=== PATIENT | female | born 1950 | race Caucasian/White ===

== ENCOUNTER 2016-09-08 08:26 | Outpatient (CLI) | payer MEDICARE, MEDICAID | END 2016-09-08 08:27 | disposition home or self-care (01) | DX: R73.9 Hyperglycemia, unspecified (principal); E78.5 Hyperlipidemia, unspecified; E55.9 Vitamin D deficiency, unspecified ==

== ENCOUNTER 2016-10-26 08:24 | Outpatient (CLI) | payer MEDICARE, MEDICAID | END 2016-10-26 08:25 | disposition home or self-care (01) | DX: E78.5 Hyperlipidemia, unspecified (principal); E03.9 Hypothyroidism, unspecified ==

== ENCOUNTER 2016-11-02 09:15 | Outpatient (CLI) | payer MEDICARE, MEDICAID ==
[2016-11-02] MEDS ORDERED: ALBUTEROL NEB 2.5 MG/3 ML INH ONE (09:57)
== END 2016-11-02 09:16 | disposition home or self-care (01) ==
DX: J45.998 Other asthma (principal)
CPT/HCPCS: 94060; 94729; J7613

== ENCOUNTER 2017-02-15 14:13 | Outpatient (CLI) | payer MEDICARE, MEDICAID ==
--- NOTE | 2017-02-15 16:27 | XRAY Report ---
TWO VIEW CHEST: 02/15/2017 CLINICAL INDICATION: Reactive airways disease. FINDINGS: Frontal and lateral views of the chest demonstrate a normal cardiac silhouette. The lungs are clear. No effusion or pneumothorax is present. IMPRESSION: NORMAL CHEST, UNCHANGED. JOB #: [id number] EXT JOB #:[id number]
== END 2017-02-15 14:14 | disposition home or self-care (01) ==
LOC: DI.S 14:13
PROVIDERS: ATTEND Physician Assistant Medical
DX: J45.909 Unspecified asthma, uncomplicated (principal)
CPT/HCPCS: 71020

== ENCOUNTER 2017-03-09 20:55 | Outpatient (CLI) | payer MEDICARE, MEDICAID ==
[2017-03-09 20:05] LABS: THYROID STIMULATING HORMONE 0.8 uIU/mL (0.34-5.60)
== END 2017-03-09 20:56 | disposition home or self-care (01) ==
LOC: LAB.WCP 20:55
PROVIDERS: ATTEND Physician Assistant Medical
DX: E03.9 Hypothyroidism, unspecified (principal)
CPT/HCPCS: 36415; 84439; 84443; 84481

== ENCOUNTER 2017-08-20 15:50 | Outpatient (CLI) | payer MEDICARE, MEDICAID ==
--- NOTE | 2017-08-20 21:14 | XRAY Preliminary Report ---
Exam: XR FOOT 3 VIEW RT IMPRESSION: Normal foot radiography. [facility] SITE ID: [id number]
--- NOTE | 2017-08-20 21:31 | XRAY Report ---
EXAM: RIGHT FOOT RADIOGRAPHY EXAM DATE: 08/20/2017 04:11 PM. CLINICAL HISTORY: Right foot pain. COMPARISON: None. TECHNIQUE: 3 views. FINDINGS: Bones: Normal. No fractures or bone lesions. Joints: Normal. No subluxations. Soft Tissues: Normal. No soft tissue swelling. IMPRESSION: Normal foot radiography. [facility] Referring Provider Line: [phone] SITE ID: [id number]
== END 2017-08-20 15:51 | disposition home or self-care (01) ==
LOC: DI.S 15:50
PROVIDERS: ATTEND Physician Assistant Medical
DX: M79.671 Pain in right foot (principal)

== ENCOUNTER 2017-08-25 09:06 | Outpatient (CLI) | payer MEDICARE, MEDICAID ==
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
== END 2017-08-25 09:07 | disposition home or self-care (01) ==
LOC: DI 09:06
PROVIDERS: ATTEND Physician Assistant Medical
DX: M50.31 Other cervical disc degeneration, high cervical region (principal); M47.892 Other spondylosis, cervical region; M51.36 Other intervertebral disc degeneration, lumbar region; M47.896 Other spondylosis, lumbar region; M43.16 Spondylolisthesis, lumbar region
CPT/HCPCS: 72141; 72148

== ENCOUNTER 2017-09-23 15:30 | Outpatient (CLI) | payer MEDICARE, MEDICAID | END 2017-09-23 15:31 | LOC: LAB.R 15:30 | PROVIDERS: ATTEND Physician Assistant Medical | DX: J34.89 Other specified disorders of nose and nasal sinuses (principal) | CPT/HCPCS: 87640 ==

== ENCOUNTER 2017-10-19 08:00 | Outpatient (CLI) | payer MEDICARE, MEDICAID | END 2017-10-19 08:01 | disposition home or self-care (01) | LOC: LAB.R 08:00 | PROVIDERS: ATTEND Physician Assistant Medical | DX: R21 Rash and other nonspecific skin eruption (principal) | CPT/HCPCS: 81599; 87070; 87205; 87255; 87529 ==

== ENCOUNTER 2017-10-21 07:36 | Outpatient (CLI) | payer MEDICARE, MEDICAID ==
[2017-10-21 11:53] LABS: THYROID STIMULATING HORMONE 0.25 uIU/mL (0.34-5.60)
[2017-10-21 11:58] LABS: ALBUMIN 4.2 g/dL (3.2-5.5); ALBUMIN/GLOBULIN RATIO 1.6 (1.0-2.2); ALKALINE PHOSPHATASE 64 IU/L (42-121); ALT ALANINE AMINOTRANSFERASE 23 IU/L (10-60); AST ASPARTATE AMINOTRANSFERASE 22 IU/L (10-42); BILIRUBIN,TOTAL 0.7 mg/dL (0.2-1.0); BUN - BLOOD UREA NITROGEN 11 mg/dL (6-20); CALCIUM 9.2 mg/dL (8.5-10.3); CARBON DIOXIDE - CO2 27 mmol/L (21-32); CHLORIDE 103 mmol/L (101-111); CHOL/HDL RATIO 3.8 (<4.4); CHOLESTEROL 220 mg/dL; CREATININE 0.7 mg/dL (0.4-1.0); GFR - MDRD 84 (>89); GLUCOSE 104 mg/dL (70-100); HDL CHOLESTEROL 58 mg/dL; LDL CHOLESTEROL,CALCULATED 138 mg/dL; LDL/HDL RATIO 2.4 (<4.4); SODIUM 137 mmol/L (135-145); TOTAL PROTEIN 6.9 g/dL (6.7-8.2); VLDL CHOLESTEROL 24 mg/dL
[2017-10-21 12:27] LABS: FREE T4 (FREE THYROXINE) 0.74 ng/dL (0.58-1.64)
== END 2017-10-21 07:37 | disposition home or self-care (01) ==
LOC: LAB.F 07:36
PROVIDERS: ATTEND Physician Assistant Medical
DX: E78.5 Hyperlipidemia, unspecified (principal); E03.9 Hypothyroidism, unspecified; R21 Rash and other nonspecific skin eruption
CPT/HCPCS: 36415; 80053; 80061; 83721; 84439; 84443

== ENCOUNTER 2017-11-24 12:43 | Outpatient (CLI) | payer MEDICARE, MEDICAID ==
[2017-12-02 09:14] LABS: THYROID PEROXIDASE ANTIBODIES <1
== END 2017-11-24 12:44 | disposition home or self-care (01) ==
LOC: LAB.F 12:43
PROVIDERS: ATTEND Naturopath
DX: Z00.00 Encounter for general adult medical examination without abnormal findings (principal); E78.5 Hyperlipidemia, unspecified; E55.9 Vitamin D deficiency, unspecified; R53.83 Other fatigue; E03.9 Hypothyroidism, unspecified; J34.89 Other specified disorders of nose and nasal sinuses
CPT/HCPCS: 36415; 82306; 82607; 84481; 86376; 86800

== ENCOUNTER 2017-11-25 14:46 | Outpatient (CLI) | payer MEDICARE, MEDICAID | END 2017-11-25 14:47 | disposition home or self-care (01) | LOC: LAB.F 14:46 | PROVIDERS: ATTEND Naturopath | DX: E06.3 Autoimmune thyroiditis (principal); E03.9 Hypothyroidism, unspecified ==

== ENCOUNTER 2018-01-27 10:32 | Outpatient (CLI) | payer MEDICARE, MEDICAID ==
--- NOTE | 2018-01-27 14:06 | Mammography Report ---
Procedure Date: 01/27/2018 Accession Number: [id number] / [id number] Procedure: KENAN - Diagnostic Dig Bilat CPT Code: FULL RESULT: EXAM: Diagnostic Dig Bilat DATE: 01/27/2018 11:30 AM CLINICAL HISTORY: 67 year-old nulliparous female presents with a palpable abnormality in her left breast and left axilla. TECHNIQUE: Bilateral CC, MLO, ML views. COMPARISON: 09/30/2015, 06/19/2009, 03/23/2008, 06/24/2007. FINDINGS: The breasts demonstrate diffuse fatty replacement bilaterally. No mammographic finding corresponds to the region marked as palpable. IMPRESSION: Benign findings RECOMMENDATION: Recommend routine annual Screening mammography unless otherwise clinically indicated. BIRADS CATEGORY 2: Benign findings STANDARD QUALIFYING STATEMENTS: 1. This examination was reviewed with the aid of Computer-Aided Detection (CAD). 2. A negative or benign imaging report should not delay biopsy if clinically suspicious findings are present. Consider surgical consultation if warrented. More than 5% of cancers are not identified by imaging. 3. Dense breasts may obscure an underlying neoplasm.
== END 2018-01-27 10:33 | disposition home or self-care (01) ==
LOC: DI 10:32
PROVIDERS: ATTEND Family Medicine
DX: N64.4 Mastodynia (principal); N63.20 Unspecified lump in the left breast, unspecified quadrant
CPT/HCPCS: 77066

== ENCOUNTER 2018-04-01 14:23 | Outpatient (CLI) | payer MEDICARE, MEDICAID ==
[2018-04-01 14:35] LABS: HGB - HEMOGLOBIN 14.4 g/dL (12.0-16.0); MEAN CORPUSCULAR HEMOGLOBIN 28.1 pg (27.0-31.0); MEAN CORPUSCULAR HGB CONC 34.3 g/dL (32.0-36.0); MEAN CORPUSCULAR VOLUME 82.2 fL (81.0-99.0); MEAN PLATELET VOLUME 8.5 fL (7.9-10.8); RED BLOOD COUNT 5.13 10^6/uL (4.20-5.40); RED CELL DISTRIBUTION WIDTH 13.6 % (12.0-15.0); WHITE BLOOD COUNT 8.1 x10^3/uL (4.8-10.8)
[2018-04-01 14:47] LABS: ALBUMIN 4.3 g/dL (3.2-5.5); ALBUMIN/GLOBULIN RATIO 1.6 (1.0-2.2); BILIRUBIN,TOTAL 0.7 mg/dL (0.2-1.0); CALCIUM 9.3 mg/dL (8.5-10.3); CREATININE 0.8 mg/dL (0.4-1.0)
== END 2018-04-01 14:24 | disposition home or self-care (01) ==
LOC: LAB 14:23
PROVIDERS: ATTEND Nurse Practitioner Family
DX: Z01.810 Encounter for preprocedural cardiovascular examination (principal); Z01.812 Encounter for preprocedural laboratory examination
CPT/HCPCS: 36415; 80053; 85027; 93005

== ENCOUNTER 2018-05-11 09:24 | Outpatient (CLI) | payer MEDICARE, MEDICAID ==
[2018-05-11 18:25] LABS: CHOL/HDL RATIO 4.1 (<4.4); CHOLESTEROL 286 mg/dL; HDL CHOLESTEROL 70 mg/dL; LDL CHOLESTEROL,CALCULATED 198 mg/dL; LDL/HDL RATIO 2.8 (<4.4); VLDL CHOLESTEROL 18 mg/dL
== END 2018-05-11 09:25 | disposition home or self-care (01) ==
LOC: LAB.F 09:24
PROVIDERS: ATTEND Physician Assistant Medical
DX: E78.5 Hyperlipidemia, unspecified (principal); E03.9 Hypothyroidism, unspecified
CPT/HCPCS: 36415; 80061; 83721; 84439; 84443

== ENCOUNTER 2018-05-26 14:51 | Outpatient (CLI) | payer MEDICARE, MEDICAID | END 2018-05-26 14:52 | disposition home or self-care (01) | LOC: LAB.F 14:51 | PROVIDERS: ATTEND Naturopath | DX: E03.9 Hypothyroidism, unspecified (principal); E34.9 Endocrine disorder, unspecified; R53.83 Other fatigue | CPT/HCPCS: 36415; 84443; 84481 ==

== ENCOUNTER 2018-07-07 13:38 | Outpatient (CLI) | payer MEDICARE, MEDICAID ==
--- NOTE | 2018-07-08 09:10 | DEXA Report ---
Reason: ENCTR FOR SCREENING FOR OSTEOPOROSIS, MENOPAUSAL S Procedure Date: 07/07/2018 Accession Number: [id number] / [id number] Procedure: DEX - Dexa Spine and/or Hip CPT Code: FULL RESULT: EXAM: Dexa Spine and/or Hip DATE: 07/07/2018 2:36 PM CLINICAL HISTORY: ENCTR FOR SCREENING FOR OSTEOPOROSIS, MENOPAUSAL S TECHNIQUE: Dual energy x-ray absorptiometry (DXA) was performed on a [employer] System. Regions measured are the AP Spine, femoral neck, and if needed forearm. COMPARISON: None. In accordance with the International Society for Clinical Densitometry (ISCD) guidelines, data from previous exams may be reanalyzed using current recommendations and techniques. This is done to allow a more accurate basis for comparison with the current study. FINDINGS: The data for the lumbar spine is as follows: BMD (g/cm/cm) T-SCORE Z-SCORE REGION L1 1.166 0.3 2.0 L2 1.228 0.2 1.9 L3 1.306 0.9 2.5 L4 1.303 0.9 2.5 TOTAL 1.255 0.6 2.3 NOTE: All evaluable vertebrae are used for classification The data for the hip is as follows: BMD (g/cm/cm) T-SCORE Z-SCORE REGION Neck 0.873 -1.2 0.3 TOTAL 0.891 -0.9 0.4 NOTE: The femoral neck or total proximal femur, whichever is lowest, is used for classification. IMPRESSION: THE WHO CLASSIFICATION BASED ON THE INTERNATIONAL REFERENCE STANDARD IS OSTEOPENIA. THE FRACTURE RISK IS INCREASED. RECOMMENDATION: Patients with diagnosis of osteoporosis or osteopenia should have regular bone mineral density assessment. For those eligible for Medicare, routine testing is allowed once every 2 years. Testing frequency can be increased for patients who have rapidly progressing disease or for those who are receiving medical therapy to restore bone mass. COMMENT: World Health Organization (WHO) definitions for osteoporosis and osteopenia: NORMAL BMD: T-score at -1.0 or higher, fracture risk is low OSTEOPENIA BMD: T-score between -1.0 and -2.5, fracture risk is increased. OSTEOPOROSIS BMD: T-score at -2.5 or lower, fracture risk is high. National Osteoporosis Foundation recommends: 1. Obtain adequate dietary calcium (at least 1200 mg per day) and vitamin D (400-800 international units per day). 2. Participate, as appropriate, in regular weightbearing and muscle-strengthening exercise. 3. Avoid tobacco use and reduce alcohol and caffeine intake. 4. For more detailed information see the website at www.NOF.org.
== END 2018-07-07 13:39 | disposition home or self-care (01) ==
LOC: DI 13:38
PROVIDERS: ATTEND Physician Assistant Medical
DX: Z13.820 Encounter for screening for osteoporosis (principal); M85.88 Other specified disorders of bone density and structure, other site; Z78.0 Asymptomatic menopausal state
CPT/HCPCS: 77080

== ENCOUNTER 2018-07-26 09:57 | Outpatient (CLI) | payer MEDICARE, MEDICAID ==
[2018-07-26 17:49] LABS: THYROID STIMULATING HORMONE 0.1 uIU/mL (0.34-5.60)
[2018-07-26 17:50] LABS: FREE T3 4.44 pg/mL (2.5-3.9)
[2018-07-26 17:51] LABS: FREE T4 (FREE THYROXINE) 0.69 ng/dL (0.58-1.64)
[2018-07-26 18:11] LABS: TESTOSTERONE, TOTAL < 10 ng/dL (0-50)
[2018-07-27 07:07] LABS: ESTRADIOL <15 pg/mL
== END 2018-07-26 09:58 | disposition home or self-care (01) ==
LOC: LAB.F 09:57
PROVIDERS: ATTEND Naturopath
DX: E03.9 Hypothyroidism, unspecified (principal); E34.9 Endocrine disorder, unspecified; R53.82 Chronic fatigue, unspecified; N94.3 Premenstrual tension syndrome; R68.82 Decreased libido
CPT/HCPCS: 36415; 82626; 82670; 84403; 84439; 84443; 84481

== ENCOUNTER 2018-10-20 13:21 | Outpatient (CLI) | payer MEDICARE, MEDICAID ==
[2018-10-20 18:32] LABS: THYROID STIMULATING HORMONE 0.92 uIU/mL (0.34-5.60)
[2018-10-20 18:34] LABS: FREE T4 (FREE THYROXINE) 0.63 ng/dL (0.58-1.64)
== END 2018-10-20 13:22 | disposition home or self-care (01) ==
LOC: LAB.F 13:21
PROVIDERS: ATTEND Naturopath
DX: Z00.00 Encounter for general adult medical examination without abnormal findings (principal); E03.9 Hypothyroidism, unspecified; R53.83 Other fatigue
CPT/HCPCS: 36415; 82627; 84439; 84443; 84481

== ENCOUNTER 2018-12-06 09:15 | Outpatient (CLI) | payer MEDICARE, MEDICAID ==
[2018-12-06 18:15] LABS: ALBUMIN 4.3 g/dL (3.2-5.5); ALBUMIN/GLOBULIN RATIO 1.4 (1.0-2.2); BILIRUBIN,TOTAL 0.8 mg/dL (0.2-1.0); CALCIUM 9.2 mg/dL (8.5-10.3); CREATININE 0.9 mg/dL (0.4-1.0); TOTAL PROTEIN 7.3 g/dL (6.7-8.2)
== END 2018-12-06 09:16 | disposition home or self-care (01) ==
LOC: LAB.F 09:15
PROVIDERS: ATTEND Physician Assistant Medical
DX: E03.9 Hypothyroidism, unspecified (principal)
CPT/HCPCS: 36415; 80053

== ENCOUNTER 2018-12-16 10:56 | Outpatient (CLI) | payer MEDICARE, MEDICAID ==
[2018-12-16 11:28] LABS: CHOL/HDL RATIO 5.2 (<4.4); CHOLESTEROL 334 mg/dL; HDL CHOLESTEROL 64 mg/dL; LDL CHOLESTEROL,CALCULATED 254 mg/dL; VLDL CHOLESTEROL 16 mg/dL
== END 2018-12-16 10:57 | disposition home or self-care (01) ==
LOC: LAB 10:56
PROVIDERS: ATTEND Physician Assistant Medical
DX: E78.5 Hyperlipidemia, unspecified (principal); R73.9 Hyperglycemia, unspecified
CPT/HCPCS: 80061; 83721

== ENCOUNTER 2019-01-20 09:17 | Outpatient (CLI) | payer MEDICARE, MEDICAID ==
[2019-01-20 10:06] LABS: CHOL/HDL RATIO 5.3 (<4.4); CHOLESTEROL 330 mg/dL; HDL CHOLESTEROL 62 mg/dL; LDL CHOLESTEROL,CALCULATED 235 mg/dL; LDL/HDL RATIO 3.8 (<4.4); VLDL CHOLESTEROL 33 mg/dL
== END 2019-01-20 09:18 | disposition home or self-care (01) ==
LOC: LAB 09:17
PROVIDERS: ATTEND Physician Assistant Medical
DX: E78.5 Hyperlipidemia, unspecified (principal); R73.9 Hyperglycemia, unspecified
CPT/HCPCS: 36415; 80061; 82951; 83721

== ENCOUNTER 2019-03-21 08:00 | Outpatient (CLI) | payer MEDICARE, MEDICAID ==
[2019-03-21 19:12] LABS: THYROID STIMULATING HORMONE 0.6 uIU/mL (0.34-5.60)
[2019-03-21 19:14] LABS: FREE T4 (FREE THYROXINE) 0.65 ng/dL (0.58-1.64)
== END 2019-03-21 23:59 | disposition home or self-care (01) ==
LOC: LAB.WCP 08:00
PROVIDERS: ATTEND Physician Assistant Medical
DX: E55.9 Vitamin D deficiency, unspecified (principal); R53.83 Other fatigue; E03.9 Hypothyroidism, unspecified
CPT/HCPCS: 36415; 82306; 82607; 84439; 84443; 84481

== ENCOUNTER 2019-04-12 12:49 | Outpatient (CLI) | payer MEDICARE, MEDICAID ==
[2019-04-12] MEDS ORDERED: GADOBUTROL 7.5 MMOL/7.5 ML VIAL ONE (13:27)
[2019-04-12] MEDS ORDERED: GADOBUTROL 7.5 MMOL/7.5 ML VIAL IVP ONE (13:54)
--- NOTE | 2019-04-12 14:38 | MRI Report ---
Reason: HEADACHE, NEUROLOGICAL CHANGES Procedure Date: 04/12/2019 Accession Number: [id number] / [id number] Procedure: MRI - Brain W/WO CPT Code: FULL RESULT: EXAM: MRI BRAIN WITHOUT AND WITH CONTRAST EXAM DATE: 04/12/2019 02:01 PM. CLINICAL HISTORY: Headache, neurological changes. COMPARISON: None. TECHNIQUE: Multiplanar, multisequence T1-weighted and fluid-sensitive MR sequences of the brain were performed before and after administration of intravenous contrast. Sequences optimized for routine evaluation. Other: None. IV Contrast: 7.5 mL Gadavist. FINDINGS: The diffusion-weighted images are normal. There is no evidence of acute or subacute cerebral infarction. The FLAIR images demonstrate multiple punctate T2 hyperintensities within the subcortical, deep, and periventricular white matter. This is consistent with a mild degree of chronic small vessel ischemia. Cerebral volume and ventricular size are normal. There is an 8 x 4 x 8 mm enhancing lesion of the intra-diploic space of the right parietal bone (93, 1002 and 81, 1003). It exhibits mild T2 hyperintensity. The differential diagnosis for this finding would include an intraosseous hemangioma. A metastatic lesion could produce a similar appearance but overall the former diagnosis would be somewhat favored. If the patient has had a prior noncontrast CT of the head and it becomes available, it can be used to determine stability of this finding. Otherwise, if the patient has had previous brain MRI and those images become available, they can be used to determine stability of this finding. There is normal enhancement within the deep venous sinuses. The bilateral parotid spaces exhibit normal signal intensity. The optic nerves demonstrate symmetric signal intensity and size. The imaged portions of the paranasal sinuses are normally aerated. The T2* sequence is normal. There is no evidence of subacute or chronic hemorrhage. IMPRESSION: 1. There is no evidence of acute or subacute cerebral infarction. 2. There is mild degree of chronic small vessel ischemia and mild degree of generalized volume loss. 3. There is an 8 x 4 x 8 mm nonspecific enhancing lesion of the intradiploic space of the right parietal bone. The overall appearance would somewhat favor that of an intraosseous hemangioma. Other etiologies such as an area of skeletal metastasis could potentially produce a similar appearance. If the patient has a prior CT of the head and it becomes available, it can be used to determine stability as well as further characterization of this abnormality. Otherwise, follow-up imaging with a noncontrast CT of the head can be performed for additional characterization as deemed clinically appropriate. 4. There is no enhancing mass within the brain parenchyma.
== END 2019-04-12 12:50 | disposition home or self-care (01) ==
LOC: DI 12:49
PROVIDERS: ATTEND Physician Assistant Medical
DX: R51 Headache (principal); R29.818 Other symptoms and signs involving the nervous system; G93.9 Disorder of brain, unspecified
CPT/HCPCS: 70553; A9585

== ENCOUNTER 2019-04-18 08:55 | Outpatient (CLI) | payer MEDICARE, MEDICAID ==
--- NOTE | 2019-04-18 11:09 | CT Report ---
Reason: HEADACHE, BONY LESION OVER PARIETAL AREA ON MRI Procedure Date: 04/18/2019 Accession Number: [id number] / [id number] Procedure: CT - HEAD WO CPT Code: FULL RESULT: EXAM: CT HEAD EXAM DATE: 04/18/2019 09:44 AM. CLINICAL HISTORY: Headache. Recent MRI report of abnormal signal in the right calvarium. COMPARISON: BRAIN W/WO 04/12/2019 1:17 PM. TECHNIQUE: Multiaxial CT images were obtained from the foramen magnum to the vertex. Reformats: Sagittal and coronal. IV contrast: None. In accordance with CT protocol optimization, one or more of the following dose reduction techniques were utilized for this exam: automated exposure control, adjustment of mA and/or KV based on patient size, or use of iterative reconstructive technique. FINDINGS: Corresponding to the region of abnormal signal on recent MRI, the CT shows a 9 x 4 x 8 mm subtle intramedullary hypodensity in the right parietal skull in the intramedullary space. The overlying inner and outer cortex of the skull are intact. Refer to reference images 23 of series 7 and image 20 of series 4. No CT evidence of fracture, the remainder of the calvarium appears grossly intact. Unremarkable CT appearance of the brain. No acute intracranial abnormality. IMPRESSION: Subtle intramedullary lucency in the right parietal bone is seen where signal abnormality was recently reported by MRI. These findings are nonspecific. The inner and outer tables of the skull are intact. This process appears solitary. The differential includes an atypical hemangioma of bone. Pathologic marrow signal changes are less likely but not entirely ruled out. This finding is too small to further characterize accurately with CT. Additional imaging follow-up may be considered to determine stability. [facility]
== END 2019-04-18 08:56 | disposition home or self-care (01) ==
LOC: DI 08:55
PROVIDERS: ATTEND Physician Assistant Medical
DX: R51 Headache (principal)
CPT/HCPCS: 70450

== ENCOUNTER 2019-12-26 12:12 | Outpatient (CLI) | payer MEDICARE, MEDICAID ==
[2019-12-26 13:12] LABS: BASOPHILS # (AUTO) 0.1 10^3/uL (0.0-0.1); BASOPHILS % (AUTO) 0.8 %; EOSINOPHILS # (AUTO) 0.2 10^3/uL (0.0-0.7); EOSINOPHILS % (AUTO) 2.5 %; HGB - HEMOGLOBIN 14.4 g/dL (12.0-16.0); LYMPHOCYTES # (AUTO) 2.9 10^3/uL (1.5-3.5); LYMPHOCYTES % (AUTO) 29.2 %; MEAN CORPUSCULAR HEMOGLOBIN 28.6 pg (27.0-31.0); MEAN CORPUSCULAR HGB CONC 33.8 g/dL (32.0-36.0); MEAN CORPUSCULAR VOLUME 84.5 fL (81.0-99.0); MONOCYTES # (AUTO) 0.6 10^3/uL (0.0-1.0); MONOCYTES % (AUTO) 5.7 %; NEUTROPHILS % (AUTO) 61.4 %; PLT - PLATELET COUNT 297 10^3/uL (130-450); RED BLOOD COUNT 5.04 10^6/uL (4.20-5.40); RED CELL DISTRIBUTION WIDTH 13.3 % (12.0-15.0); WHITE BLOOD COUNT 9.8 x10^3/uL (4.8-10.8)
[2019-12-26 13:29] LABS: ALBUMIN 4.3 g/dL (3.2-5.5); ALBUMIN/GLOBULIN RATIO 1.6 (1.0-2.2); ALKALINE PHOSPHATASE 76 IU/L (42-121); ALT ALANINE AMINOTRANSFERASE 26 IU/L (10-60); AST ASPARTATE AMINOTRANSFERASE 25 IU/L (10-42); BILIRUBIN,TOTAL 0.8 mg/dL (0.2-1.0); BUN - BLOOD UREA NITROGEN 18 mg/dL (6-20); CALCIUM 9.4 mg/dL (8.5-10.3); CARBON DIOXIDE - CO2 25 mmol/L (21-32); CHLORIDE 104 mmol/L (101-111); CHOL/HDL RATIO 4.9 (<4.4); CHOLESTEROL 300 mg/dL; CREATININE 0.9 mg/dL (0.4-1.0); GLUCOSE 101 mg/dL (70-100); HDL CHOLESTEROL 61 mg/dL; LDL CHOLESTEROL,CALCULATED 213 mg/dL; LDL/HDL RATIO 3.5 (<4.4); SODIUM 139 mmol/L (135-145); VLDL CHOLESTEROL 26 mg/dL
--- NOTE | 2019-12-26 15:50 | XRAY Report ---
PROCEDURE: Chest 2 View X-Ray INDICATIONS: CHEST PAIN TECHNIQUE: 2 view(s) of the chest. COMPARISON: None. FINDINGS: Surgical changes and devices: None. Lungs and pleura: No pleural effusions or pneumothorax. Lungs are clear. Mediastinum: Mediastinal contours are normal. Heart size is normal. Bones and chest wall: No suspicious bony abnormalities. Soft tissues appear unremarkable. IMPRESSION: Chest without acute cardiopulmonary abnormalities. Reviewed by: Neo Butt MD on 12/26/2019 3:49 PM PDT Approved by: Neo Butt MD on 12/26/2019 3:49 PM PDT Station ID: [id number]
== END 2019-12-26 12:13 | disposition home or self-care (01) ==
LOC: DI 12:12
PROVIDERS: ATTEND Physician Assistant Medical
DX: R07.9 Chest pain, unspecified (principal); E78.5 Hyperlipidemia, unspecified; E03.9 Hypothyroidism, unspecified
CPT/HCPCS: 36415; 71046; 80053; 80061; 83721; 84443; 85025

== ENCOUNTER 2020-01-16 16:01 | Outpatient (CLI) | payer MEDICARE, MEDICAID | END 2020-01-16 16:02 | disposition home or self-care (01) | LOC: LAB.S 16:01 | PROVIDERS: ATTEND Physician Assistant Medical | DX: R07.9 Chest pain, unspecified (principal); R53.83 Other fatigue | CPT/HCPCS: 36415; 83735 ==

== ENCOUNTER 2020-01-23 09:31 | Outpatient (CLI) | payer MEDICARE, MEDICAID ==
--- NOTE | 2020-01-23 12:17 | MRI Report ---
PROCEDURE: Lumbar Spine W/O INDICATIONS: [id number] DISC DISEASE TECHNIQUE: Noncontrast sagittal T1 spin echo and T2 fast echo, sagittal STIR, axial T1 and T2 fast spin echo thr ough the lumbar spine. In cases with scoliosis, additional coronal T2 fast spin echo may be performe d. COMPARISON: 08/25/2017 Correlation is made with the accompanying cervical spine MRI 01/23/2020. FINDINGS: Image quality: Excellent. Alignment and Curvature: There is mild S-shaped sclerotic curvature seen on the starch crab images. Minima l anterolisthesis is seen at the L3-L4 level. Grade 1 anterolisthesis is seen at L4-L5. No definite a ssociated pars defects are seen on these images. Bone Marrow: Marrow is of normal overall signal. No acute vertebral body compression fractures. Spinal Cord: Conus medullaris terminates at the L1 level. Visualized cord demonstrates normal signa l and size. Paraspinous Soft Tissues: No paravertebral masses. This patient has transitional anatomy. For the purposes of this examination, the level with the last well-developed disc space is considered to be L5-S1. This numbering scheme is chosen to remain consis tent with the numbering scheme on the prior lumbar MRI report 08/25/2017. T11-T12: Mild to moderate loss of disc height and disc signal can be seen. Mild disc bulge is seen. No significant neural foraminal or central canal narrowing can be seen. These imaging findings a re similar to the images of the prior examination. T12-L1: The disc height is well-preserved. There is loss of disc signal seen. (This level is not inc luded on the oblique axial images.) No significant disc bulge is seen. No neural foraminal or central canal narrowing can be seen. No significant change compared to the prior examination. L1-L2: Moderate loss of disc height and signal are seen. Mild to moderate disc bulge is seen. Mild to moderate facet hypertrophy is seen. There is mild to moderate right-sided and moderate left-sided neuroforaminal narrowing seen. Minimal to mild central canal narrowing is seen. These imaging findi ngs are similar to the images of the prior examination. L2-L3: Mild to moderate loss of disc height and disc signal are seen. Mild to moderate disc bulge is seen. Mild to moderate facet hypertrophy is seen. There is mild bilateral neuroforaminal narrowing seen. Mild central canal narrowing is seen. No significant change compared to the prior examinati on. L3-L4: The disc height is well-preserved. There is loss of disc signal seen. Moderate disc bulge is seen, which is eccentric to the right. At least moderate facet hypertrophy is seen. Fluid is seen wi thin the facet joints themselves. Mild bilateral neural foraminal narrowing is seen. At least mode rate central canal narrowing is seen, as on series 701 image 18. Mild progression compared to 2018. L4-L5: Mild loss of disc height and disc signal are seen. Moderate disc bulge is seen, which is ecc entric to the right. Prominent facet hypertrophy is seen. There is moderate bilateral neuroforaminal narrowing seen at this level. Moderate to severe central canal narrowing is seen, as on series 701 im age 14. These degenerative changes have progressed when compared to the prior examination. L5-S1: The disc height is well-preserved. There is loss of disc signal seen. Mild to moderate disc bulge is seen. There is mild to moderate facet hypertrophy seen. There is minimal to mild bilateral neuroforaminal narrowing seen. Minimal central canal narrowing is seen. These imaging findings are similar to the images of the prior examination. IMPRESSION: Lumbar spine degenerative changes are seen, which are most prominent at L3-L4 and L4-L5. The degenerative changes have mildly progressed compared to 2018 at the L3-L4 and the L4-L5 levels. Reviewed by: Jose Zavala MD on 01/23/2020 11:16 AM [facility] Approved by: Jose Zavala MD on 01/23/2020 11:16 AM TWAN Station ID: [id number]
--- NOTE | 2020-01-23 12:25 | MRI Report ---
PROCEDURE: Cervical Spine W/O INDICATIONS: [id number] DISC DISEASE TECHNIQUE: Noncontrast sagittal T1 spin echo and T2 fast spin echo, sagittal STIR, foraminal oblique sagittal T2 fast spin echo, and axial gradient echo or T2 fast spin echo through the cervical spine. COMPARISON: 08/25/2017. Correlation is also made with the accompanying lumbar spine MRI 01/23/2020. FINDINGS: Image quality: Motion artifact is noted. Alignment and Curvature: There is normal bony alignment. Bone Marrow: Marrow demonstrates normal overall signal. Spinal Cord: Visualized spinal cord has normal size and signal. No cerebellar tonsillar herniation. Paraspinous Soft Tissues: No paravertebral masses. Prevertebral soft tissues are normal in thicknes s. C2-C3: Moderate loss of disc height and signal are seen. Mild disc osteophyte complex is seen, with a central/right disc osteophyte protrusion, as on series 701 image 25. Mild to moderate facet hypertr ophy is seen. There is moderate left-sided and minimal right-sided neuroforaminal narrowing seen. Mod erate central canal narrowing is seen, with associated mild mass effect upon the ventral spinal cord. These imaging findings are similar to the images of the prior examination. C3-C4: Moderate loss of disc height and signal are seen. Moderate disc osteophyte complex is seen, which is eccentric to the right. There is a central disc osteophyte protrusion, as on series 701 imag e 21. There is moderate bilateral facet hypertrophy seen, right worse than left. There is moderate to severe bilateral neuroforaminal narrowing seen. At least moderate central canal narrowing is seen. Associated mass effect is seen upon the ventral spinal cord. These imaging findings are similar to t he images of the prior examination. C4-C5: Moderate loss of disc height and signal are seen. Moderate to prominent disc osteophyte compl ex is seen, which is eccentric to the right. Uncovertebral joint hypertrophy is seen at this level. Moderate facet hypertrophy is seen. Moderate to severe bilateral neuroforaminal narrowing is seen. There is moderate to severe central canal narrowing seen, with associated ventral cord flattening, a s on series 701 image 18. These degenerative changes have progressed when compared to the prior exami nation. C5-C6: Moderate loss of disc height and signal are seen. Moderate disc osteophyte complex is seen, w ith a central/right disc osteophyte protrusion. Uncovertebral joint hypertrophy is seen at this leve l. Moderate facet hypertrophy is seen, right worse than left. Moderate to severe bilateral neurofora kayleigh narrowing is seen. Moderate to severe central canal narrowing is seen, with associated ventral cord flattening, as on series 701 image 14. These degenerative changes have progressed when compared to the prior examination. C6-C7: Moderate loss of disc height and signal are seen. At least moderate disc osteophyte complex i s seen. There is a central disc osteophyte protrusion seen. Uncovertebral joint hypertrophy is seen at this level. Mild to moderate facet hypertrophy is seen. There is moderate to severe bilateral tamera roforaminal narrowing seen. At least moderate central canal narrowing is seen. Associated mass effec t is seen upon the ventral spinal cord. These imaging findings are similar to the images of the prio r examination. C7-T1: The disc height is well-preserved. There is loss of disc signal seen. Mild disc osteophyte c omplex is seen. Mild facet hypertrophy is seen. Moderate bilateral neural foraminal narrowing is seen. Mild central canal narrowing is seen. These imaging findings are similar to the images of t he prior examination. IMPRESSION: Multiple levels of cervical spine degenerative change are seen, which are most prominent inferiorly. The degenerative changes have progressed at C4-C5, C5-C6, and C6-C7 compared to 2018. Reviewed by: Jose Zavala MD on 01/23/2020 11:24 AM TWAN Approved by: Jose Zavala MD on 01/23/2020 11:24 AM TWAN Station ID: [id number]
== END 2020-01-23 09:32 | disposition home or self-care (01) ==
LOC: DI 09:31
PROVIDERS: ATTEND Physician Assistant Medical
DX: M50.30 Other cervical disc degeneration, unspecified cervical region (principal); M43.16 Spondylolisthesis, lumbar region; M51.34 Other intervertebral disc degeneration, thoracic region; M48.061 Spinal stenosis, lumbar region without neurogenic claudication; M47.816 Spondylosis without myelopathy or radiculopathy, lumbar region; M47.817 Spondylosis without myelopathy or radiculopathy, lumbosacral region; M25.78 Osteophyte, vertebrae; M50.31 Other cervical disc degeneration, high cervical region; M48.02 Spinal stenosis, cervical region; M47.812 Spondylosis without myelopathy or radiculopathy, cervical region; M47.813 Spondylosis without myelopathy or radiculopathy, cervicothoracic region; M48.03 Spinal stenosis, cervicothoracic region
CPT/HCPCS: 72141; 72148

== ENCOUNTER 2020-02-28 09:07 | Outpatient (CLI) | payer MEDICARE, MEDICAID ==
--- NOTE | 2020-02-28 15:39 | Nuclear Medicine Report ---
PROCEDURE: Rest and exercise myocardial perfusion SPECT with gated imaging and ejection fraction INDICATIONS: CHEST PAIN RADIOPHARMACEUTICAL: 8.5 mCi Tc-99m Myoview IV at rest and 22.7 mCi Tc-99m Myoview IV at peak exerci se. [id number] was performed. TECHNIQUE: Radiopharmaceutical was injected at peak stress test, and also at rest. SPECT images wer e obtained. SPECT myocardial perfusion images were displayed in short axis, horizontal long axis, an d vertical long axis views. Gated images were reviewed using AutoQUANT software. COMPARISON: None available. FINDINGS: Raw data: There is good myocardial labeling by radiotracer. No significant motion artifacts. Lung- to-heart ratio is 0.36 (normal is less than 0.38 for tetrafosmin tracer). Left ventricle function: Gated images demonstrate normal left ventricle wall thickening. No segment al wall motion abnormality. No transient ischemic dilation; TID is 1.23 (normal less than 1.3). The left ventricle resting end-diastolic volume is normal. Left ventricle stress ejection fraction is g reater than 70%; normal values are above 45%. Myocardial perfusion: There is a fixed defect in the anterior septum, most likely caused by breast a ttenuation artifact. There is otherwise normal distribution of activity in the left and right ventric ular myocardium. No reversible perfusion defects. IMPRESSION: 1. Normal myocardial perfusion images. Decreased activity in the anterior septum is most likely cause d by breast attenuation artifact. No reversible perfusion defect to suggest myocardial ischemia. 2. Normal left ventricular volume and systolic function. PQRS ATTESTATIONS: Measure 322 - Is this imaging test primarily performed on a low-risk surgery patient for preoperative evaluation within 30 days preceding their low-risk non-cardiac surgery? Low-risk surgery is defined as cardiac or myocardial infarction less than 1%, including (but not limited to) endoscopic pr ocedures, superficial procedures, cataract surgery, and excisional breast surgery: Answer: No Measure 323 - Is this imaging test performed primarily for the monitoring of an asymptomatic patient who had percutaneous coronary intervention on the visit date or within 2 years of the visit date? An swer: No Measure 324 - Is this imaging test performed primarily for the initial detection and risk assessment on an asymptomatic, low coronary heart disease patient? Low CHD risk definition = clinicians should consider the maximum number of available patient factors used to estimate risk based on [place] (A TP III criteria), typically age, gender, diabetes, smoking status, and use of blood pressure medicati on, and integrate age appropriate estimates for missing elements, such as LDL or standard blood press ure. Answer: No Reviewed by: Sarah Thomas MD on 02/28/2020 2:38 PM AKSTEPHANIE Approved by: Sarah Thomas MD on 02/28/2020 2:38 PM AKDT Station ID: [id number]
--- NOTE | 2020-02-28 17:28 | CARDIAC PROCEDURE NOTE ---
DATE OF SERVICE: 02/28/2020 Physician: Colleen Saleh MD, [facility] INDICATION: Chest pain. PROCEDURE: After signing informed consent, the patient underwent a Rock- protocol treadmill stress test with nuclear myocardial perfusion imaging. RESTING HEART RATE: 62. PEAK HEART RATE: 142 (92% predicted maximum heart rate for age). RESTING BLOOD PRESSURE: 138/83. PEAK BLOOD PRESSURE: 237/76. The patient exercised for 3 minutes and 26 seconds on an extended stage-1 Rock- protocol treadmill stress test. She achieved a peak heart rate of 142 (92% PMHR) and 4.6 METS. The patient developed shortness of breath quickly. She was moderately to severely short of breath at peak, and rated her perceived exertion at 16/20 at peak on the Rahul scale. She had no chest pain. Oxygen saturation was 98-100% on room air throughout the entire test. RESTING EKG: Normal sinus rhythm, right axis deviation, RSR' in V1, possible left atrial enlargement. EKG AT 1 MINUTE: New T-wave inversions are present in leads II, III, aVF, and V3 through V6. EKG AT PEAK: Frequent PVCs, a run of ventricular trigeminy seen, rare PACs, ore rightward axis, flattened T-waves in leads II, III, aVF, and V2 through V5. SUMMARY 1. Abnormal resting EKG, suggestive of cor pulmonale. 2. Ischemic T-wave changes are visualized at 1 minute. 3. Abnormal EKG at peak suggesting inferior, as well as anterior ischemia. 4. Premature ventricular contractions increase at peak heart rate despite no desaturation, suggesting ischemia. 5. Nuclear images reported separately. 6. This patient's cardiac risk based on all the above: High. cc: Nallely Styles PA-C TD: 02/28/2020 17:17 FRANK
== END 2020-02-28 09:08 | disposition home or self-care (01) ==
LOC: DI 09:07
PROVIDERS: ATTEND Physician Assistant Medical
DX: R94.31 Abnormal electrocardiogram [ECG] [EKG] (principal); I49.3 Ventricular premature depolarization
CPT/HCPCS: 78452; 93016; 93017; 93018; A9500

== ENCOUNTER 2020-03-09 07:54 | Outpatient (CLI) | payer MEDICARE, MEDICAID | END 2020-03-09 23:59 | disposition home or self-care (01) | LOC: LAB.R 07:54 | PROVIDERS: ATTEND Physician Assistant Medical | DX: R05 Cough (principal) | CPT/HCPCS: 87070; 87205 ==

== ENCOUNTER 2020-05-01 12:24 | Outpatient (CLI) | payer MEDICARE, MEDICAID ==
--- NOTE | 2020-05-02 15:20 | Mammography Report ---
BILATERAL DIGITAL SCREENING MAMMOGRAM 3D/2D: 05/01/2020 CLINICAL: Routine screening. Comparison is made to exams dated: 01/27/2018 mammogram and 09/30/2015 mammogram - [facility]. There are scattered fibroglandular elements in both breasts. There is a benign area of fat necrosis in the left breast. There also are benign post operative find ings in both breasts. No significant masses, calcifications, or other findings are seen in either breast. There has been no significant interval change. IMPRESSION: BENIGN There is no mammographic evidence of malignancy. A 1 year screening mammogram is recommended. This exam was interpreted at Station ID: [id number]. NOTE: For mammograms, a report in lay terms will be sent to the patient. Approximately 15% of breast malignancies will not be visualized mammographically. In the management of a palpable breast mass, a negative mammogram must not discourage biopsy of a clinically suspicious lesion. Electronically Signed By: John Roger M.D. [email or web address]:05/01/2020 14:50:07 ACR BI-RADS Category 2: Benign Finding(s) 3342F PARENCHYMAL PATTERN: (A) - The breast(s) demonstrate(s) scattered fibroglandular densities. BI-RADS CATEGORY: (2) - 2 RECOMMENDATION: (ANNUAL) - Recommend routine annual screening mammography. [id number] 1 year screening LATERALITY: (B)
== END 2020-05-01 12:25 | disposition home or self-care (01) ==
LOC: DI.N 12:24
DX: Z12.31 Encounter for screening mammogram for malignant neoplasm of breast (principal)
CPT/HCPCS: 77063; 77067

== ENCOUNTER 2020-09-13 08:00 | Outpatient (CLI) | payer MEDICARE, MEDICAID ==
[2020-09-13 19:53] LABS: BASOPHILS # (AUTO) 0.1 10^3/uL (0.0-0.1); BASOPHILS % (AUTO) 0.8 %; EOSINOPHILS # (AUTO) 0.2 10^3/uL (0.0-0.7); EOSINOPHILS % (AUTO) 2.9 %; HCT - HEMATOCRIT 43.8 % (37.0-47.0); HGB - HEMOGLOBIN 14.3 g/dL (12.0-16.0); LYMPHOCYTES # (AUTO) 2.9 10^3/uL (1.5-3.5); LYMPHOCYTES % (AUTO) 40.4 %; MEAN CORPUSCULAR HEMOGLOBIN 28.3 pg (27.0-31.0); MEAN CORPUSCULAR HGB CONC 32.6 g/dL (32.0-36.0); MEAN CORPUSCULAR VOLUME 86.7 fL (81.0-99.0); MEAN PLATELET VOLUME 11.4 fL (7.9-10.8); MONOCYTES # (AUTO) 0.5 10^3/uL (0.0-1.0); MONOCYTES % (AUTO) 6.4 %; NEUTROPHILS # (AUTO) 3.6 10^3/uL (1.5-6.6); NEUTROPHILS % (AUTO) 49.4 %; PLT - PLATELET COUNT 309 10^3/uL (130-450); RED BLOOD COUNT 5.05 10^6/uL (4.20-5.40); RED CELL DISTRIBUTION WIDTH 13.1 % (12.0-15.0); WHITE BLOOD COUNT 7.2 x10^3/uL (4.8-10.8)
[2020-09-13 20:28] LABS: T4 (THYROXINE) 7.09 ug/dL (6.09-12.23)
[2020-09-13 20:31] LABS: THYROID STIMULATING HORMONE 1.02 uIU/mL (0.34-5.60)
[2020-09-13 20:34] LABS: ALBUMIN 4.1 g/dL (3.2-5.5); ALBUMIN/GLOBULIN RATIO 1.3 (1.0-2.2); BILIRUBIN,TOTAL 0.5 mg/dL (0.2-1.0); CALCIUM 9.7 mg/dL (8.5-10.3); CREATININE 0.9 mg/dL (0.4-1.0); POTASSIUM 3.9 mmol/L (3.5-5.0); TOTAL PROTEIN 7.2 g/dL (6.7-8.2)
[2020-09-13 20:38] LABS: TOTAL T3 1.35 ng/mL (0.87-1.78)
== END 2020-09-13 23:59 | disposition home or self-care (01) ==
LOC: LAB.S 08:00
PROVIDERS: ATTEND Physician Assistant Medical
DX: E03.9 Hypothyroidism, unspecified (principal); R53.83 Other fatigue; R00.2 Palpitations
CPT/HCPCS: 36415; 80053; 84436; 84443; 84480; 85025

== ENCOUNTER 2020-09-16 09:56 | Outpatient (CLI) | payer MEDICARE, MEDICAID ==
[2020-09-16 14:48] LABS: ALBUMIN 4.3 g/dL (3.2-5.5); ALBUMIN/GLOBULIN RATIO 1.4 (1.0-2.2); ALKALINE PHOSPHATASE 77 IU/L (42-121); ALT ALANINE AMINOTRANSFERASE 24 IU/L (10-60); AST ASPARTATE AMINOTRANSFERASE 21 IU/L (10-42); BILIRUBIN,TOTAL 0.8 mg/dL (0.2-1.0); BUN - BLOOD UREA NITROGEN 20 mg/dL (6-20); CALCIUM 9.4 mg/dL (8.5-10.3); CARBON DIOXIDE - CO2 27 mmol/L (21-32); CHLORIDE 102 mmol/L (101-111); CHOL/HDL RATIO 4.8 (<4.4); CHOLESTEROL 300 mg/dL; CREATININE 0.8 mg/dL (0.4-1.0); GFR - MDRD 71 (>89); GLUCOSE 109 mg/dL (70-100); HDL CHOLESTEROL 62 mg/dL; LDL CHOLESTEROL,CALCULATED 197 mg/dL; LDL/HDL RATIO 3.2 (<4.4); SODIUM 136 mmol/L (135-145); TOTAL PROTEIN 7.4 g/dL (6.7-8.2); TRIGLYCERIDES 205 mg/dL; VLDL CHOLESTEROL 41 mg/dL
== END 2020-09-16 09:57 | disposition home or self-care (01) ==
LOC: LAB.S 09:56
PROVIDERS: ATTEND Physician Assistant Medical
DX: E78.5 Hyperlipidemia, unspecified (principal)
CPT/HCPCS: 36415; 80053; 80061; 83721

== ENCOUNTER 2020-10-29 10:57 | Outpatient (CLI) | payer MEDICARE, MEDICAID ==
[2020-10-29 15:23] LABS: ALBUMIN 4.4 g/dL (3.2-5.5); ALBUMIN/GLOBULIN RATIO 1.6 (1.0-2.2); ALKALINE PHOSPHATASE 70 IU/L (42-121); ALT ALANINE AMINOTRANSFERASE 20 IU/L (10-60); AST ASPARTATE AMINOTRANSFERASE 20 IU/L (10-42); BILIRUBIN,TOTAL 0.9 mg/dL (0.2-1.0); BUN - BLOOD UREA NITROGEN 21 mg/dL (6-20); CALCIUM 9.3 mg/dL (8.5-10.3); CARBON DIOXIDE - CO2 26 mmol/L (21-32); CHLORIDE 105 mmol/L (101-111); CHOL/HDL RATIO 4.8 (<4.4); CHOLESTEROL 309 mg/dL; CREATININE 0.9 mg/dL (0.4-1.0); GFR - MDRD 62 (>89); GLUCOSE 107 mg/dL (70-100); HDL CHOLESTEROL 64 mg/dL; LDL CHOLESTEROL,CALCULATED 216 mg/dL; LDL/HDL RATIO 3.4 (<4.4); POTASSIUM 4.1 mmol/L (3.5-5.0); SODIUM 140 mmol/L (135-145); TOTAL PROTEIN 7.1 g/dL (6.7-8.2); TRIGLYCERIDES 147 mg/dL; VLDL CHOLESTEROL 29 mg/dL
[2020-10-29 15:29] LABS: T4 (THYROXINE) 12.18 ug/dL (6.09-12.23)
[2020-10-29 15:33] LABS: THYROID STIMULATING HORMONE < 0.08 uIU/mL (0.34-5.60)
== END 2020-10-29 10:58 | disposition home or self-care (01) ==
LOC: LAB.S 10:57
PROVIDERS: ATTEND Registered Nurse
DX: E78.5 Hyperlipidemia, unspecified (principal); E03.9 Hypothyroidism, unspecified
CPT/HCPCS: 36415; 80053; 80061; 83721; 84436; 84443; 84480

== ENCOUNTER 2021-01-30 12:30 | Outpatient (CLI) | payer MEDICARE, MEDICAID ==
[2021-01-30 15:17] LABS: T4 (THYROXINE) 10.39 ug/dL (6.09-12.23)
[2021-01-30 15:21] LABS: THYROID STIMULATING HORMONE 0.08 uIU/mL (0.34-5.60)
[2021-01-30 15:57] LABS: FREE T4 (FREE THYROXINE) 1.45 ng/dL (0.58-1.64)
== END 2021-01-30 12:31 | disposition home or self-care (01) ==
LOC: LAB.S 12:30
PROVIDERS: ATTEND Registered Nurse
DX: E03.9 Hypothyroidism, unspecified (principal)
CPT/HCPCS: 36415; 84436; 84439; 84443; 84480

== ENCOUNTER 2021-04-21 07:04 | Outpatient (CLI) | payer MEDICARE, MEDICAID ==
[2021-04-21 15:39] LABS: CHOLESTEROL 297 mg/dL; HDL CHOLESTEROL 59 mg/dL; LDL CHOLESTEROL,CALCULATED 208 mg/dL; LDL/HDL RATIO 3.5 (<4.4); TRIGLYCERIDES 150 mg/dL; VLDL CHOLESTEROL 30 mg/dL
== END 2021-04-21 07:05 | disposition home or self-care (01) ==
LOC: LAB.S 07:04
PROVIDERS: ATTEND Registered Nurse
DX: E78.5 Hyperlipidemia, unspecified (principal)
CPT/HCPCS: 36415; 80061; 83721

== ENCOUNTER 2021-09-16 08:17 | Outpatient (CLI) | payer MEDICARE, MEDICAID ==
[2021-09-16 14:29] LABS: BASOPHILS # (AUTO) 0.1 10^3/uL (0.0-0.1); BASOPHILS % (AUTO) 0.7 %; EOSINOPHILS # (AUTO) 0.2 10^3/uL (0.0-0.7); EOSINOPHILS % (AUTO) 2.6 %; HCT - HEMATOCRIT 44.4 % (37.0-47.0); HGB - HEMOGLOBIN 14.5 g/dL (12.0-16.0); LYMPHOCYTES # (AUTO) 2.3 10^3/uL (1.5-3.5); LYMPHOCYTES % (AUTO) 33.7 %; MEAN CORPUSCULAR HEMOGLOBIN 27.9 pg (27.0-31.0); MEAN CORPUSCULAR HGB CONC 32.7 g/dL (32.0-36.0); MEAN CORPUSCULAR VOLUME 85.5 fL (81.0-99.0); MEAN PLATELET VOLUME 10.9 fL (7.9-10.8); MONOCYTES # (AUTO) 0.5 10^3/uL (0.0-1.0); MONOCYTES % (AUTO) 7.7 %; NEUTROPHILS # (AUTO) 3.8 10^3/uL (1.5-6.6); NEUTROPHILS % (AUTO) 55.2 %; PLT - PLATELET COUNT 315 10^3/uL (130-450); RED BLOOD COUNT 5.19 10^6/uL (4.20-5.40); RED CELL DISTRIBUTION WIDTH 13.2 % (12.0-15.0); WHITE BLOOD COUNT 6.9 x10^3/uL (4.8-10.8)
[2021-09-16 14:46] LABS: THYROID STIMULATING HORMONE 0.14 uIU/mL (0.34-5.60)
[2021-09-16 14:52] LABS: ALBUMIN 4.1 g/dL (3.2-5.5); ALBUMIN/GLOBULIN RATIO 1.4 (1.0-2.2); ALKALINE PHOSPHATASE 73 IU/L (42-121); ALT ALANINE AMINOTRANSFERASE 24 IU/L (10-60); AST ASPARTATE AMINOTRANSFERASE 23 IU/L (10-42); BILIRUBIN,TOTAL 0.8 mg/dL (0.2-1.0); BUN - BLOOD UREA NITROGEN 17 mg/dL (6-20); CALCIUM 9.2 mg/dL (8.5-10.3); CARBON DIOXIDE - CO2 25 mmol/L (21-32); CHLORIDE 103 mmol/L (101-111); CHOL/HDL RATIO 4.5 (<4.4); CHOLESTEROL 288 mg/dL; CREATININE 1.1 mg/dL (0.4-1.0); GFR - MDRD 49 (>89); GLUCOSE 109 mg/dL (70-100); HDL CHOLESTEROL 64 mg/dL; LDL CHOLESTEROL,CALCULATED 205 mg/dL; LDL/HDL RATIO 3.2 (<4.4); SODIUM 138 mmol/L (135-145); TOTAL PROTEIN 7.1 g/dL (6.7-8.2); TRIGLYCERIDES 96 mg/dL; VLDL CHOLESTEROL 19 mg/dL
[2021-09-16 15:20] LABS: FREE T4 (FREE THYROXINE) 1.3 ng/dL (0.58-1.64)
== END 2021-09-16 08:18 | disposition home or self-care (01) ==
LOC: LAB.S 08:17
PROVIDERS: ATTEND Registered Nurse
DX: E78.5 Hyperlipidemia, unspecified (principal); R73.9 Hyperglycemia, unspecified; E03.9 Hypothyroidism, unspecified; F32.A Depression, unspecified
CPT/HCPCS: 36415; 80053; 80061; 83721; 84439; 84443; 85025

== ENCOUNTER 2021-10-08 11:45 | Outpatient (CLI) | payer MEDICARE, MEDICAID ==
--- NOTE | 2021-10-08 12:30 | SLEEP CARE CONSULTATION ---
Information from patient questionnaire entered by Mani Latham MA. I have reviewed and concur with the information entered by Mani Latham MA. This document represents the service I personally performed and the decisions made by me, Ciara Snyder ARNP. History of Present Illness Service Date and Time: 10/08/2021 1145 Reason for Visit: New patient (ONSET 09/2016, NO PRIORS, ) Chief Complaint: reports: Unrefreshed sleep, Excessive daytime sleepiness, Fati abraham, Other (wake at night; trouble going back to sleep) Date of Onset: couple of years Usual bedtime: 9-11 PM, sometimes midnight Time it takes to fall asleep: 30 minutes to 1 hr Snores at night: No (don't know, sleeps alone) Observed to quit breathing while asleep: No Number of times waking at night: 1 Reasons for waking at night: reports: Pain, Bathroom, Other (sounds in apartment; has asthma, will wake up short of breath). denies: Choking, Snoring, Gasping for air Toss, Turn, or Twitch while sleeping: Yes Recalls having dreams: Yes Usually gets out of bed at: 0730 for meds Feels refreshed in the morning: No Morning headache: Yes (daily; last until take ibuprofen) Sleepy or fatigued during the day: Yes (once in a while; yobani in winter) Ever fallen asleep while driving: No Takes day naps: Yes (once in a while) Dreams during day naps: No Prior sleep studies: No Additional HPI information: I had the pleasure of seeing PAULETTE MUHAMMAD today regarding the possibility of her having a sleep disorder. Her current complaints are fatigue and trouble going back to sleep. She states does not feel rested in the mornings. She has slept alone since and does not know if she snores or has any pauses in breathing. - Parasomnia Symptoms Ever been unable to move upon waking from sleep: Yes Walks in sleep: No Talks in sleep: Yes (probably) Ever acted out dreams in sleep: No Ever felt weak in the knees when startled or emotional: No Bothered by creepy, crawly, restless sensations in legs: Yes (sciatica and low magnesium) Problems with memory or concentration: Yes (both, brain fog really bad) Subjective Initial [place] Sleepiness Scale score: 1 (2021) Past Medical History Past Medical History: reports: Claustrophobia, Arthritis, Hypothyroidism, Fibromyalgia, Anxiety, Asthma, Depression, Other (MCS, chronic fatigue, hypoglycemia; cervical and neck degeneration-started PT) Social History The patient's occupation is a RE. Patient is Single and lives in . Have you smoked in the past 12 months: No Cigarettes per day (20/pack): 30 Years of smokin Quit date: 1989 Smoking Pack Years: 15.0 Alcohol use: No Caffeine use: Yes Caffeine amount and frequency: 0-4 per week Family History Family history of sleep disordered breathing: No (unknown) Allergies and Home Medications Drug allergies reviewed: Yes (Vicodon, Valium) Home medication list reviewed: Yes Allergy and home medication list: Medications: Levothyroxine Triamcinolone cream 0.1% Ibuprofen MSM Saccharomyces Boulardii Madan Stress Red Rice Yeast w/ CoQ10 Zinc Vitamin D-3 Calm (Magnesium/Calcium) Effer C with B complex Sambucus Elderberry NAC Xopenex HFA Review of Systems Weight gain over past 5 years: 10 pounds Cardiovascular: reports: irregular heart rate or pulse (at times) Respiratory: reports: shortness of breath, wheeze Urinary: reports: frequency (when caffiene or wait too long; doing Kegels), urgency Neurological: reports: headaches, head trauma, other (Pressure left side of head and left ear when out of alignment) Psychiatric: reports: Attention Deficit Hyperactivity (not checked yet), anxiety, depression Ear/Nose/Throat: reports: injury to nose (bridge), tonsillectomy, wisdom teeth removed, other (tinnitus) Endocrine: reports: thyroid disease, sluggishness, too hot or cold (at times), increased appetite, increased urination (when I drink caffeine), unexplained weakness (muscle), other (dehydrated) Immunologic: reports: sneezing, itching, allergies to food or environment (mold; soy; dairy (lactose), whey, gluten), other (MCS, perfume, fragrances, diesel fuel smell) Physical Exam Vital signs obtained and entered by: Garrison LATHAM CMA AAANDIE Blood Pressure: 138/76 (left) Cuff size: wrist Heart Rate: 144 O2 Saturation: 97 Height: 4 ft 10.75 in Weight: 150 lb (clothes on) Body Mass Index: 30.5 BMI Classification: Obese Neck circumference: 14.25 (inches) Mouth and throat: narrow oropharynx Soft palate: long Hard palate: normal Uvula: normal Uvula visualization: 50% Mallampati Class II Tongue: enlarged in size with teeth whitehead on lateral edges Tonsils: absent bilaterally Neck: normal w/o lymphadenopathy or thyromegaly Heart: regular rate and rhythm Lungs: clear bilaterally Impression and Plan 1. Suspected Obstructive Sleep Apnea-Hypopnea Syndrome, as suggested by a history of morning headache, unrefreshed sleep, cognitive impairment, and excessive daytime sleepiness. Narrow oropharynx and obesity are common predisposing factors for obstructive sleep apnea-hypopnea syndrome. I recommend proceeding to polysomnography to confirm the diagnosis and to assess severity. If the patient has significant sleep disordered breathing, a manual CPAP titration study will also be performed to find the optimal treatment pressure. I informed the patient of what the sleep studies involve and after some discussion, obtained agreement to proceed. The pathophysiology of obstructive sleep apnea-hypopnea syndrome was discussed with the patient and health risks of cardiovascular and cerebrovascular disease if not treated. Risks of drowsy driving discussed in detail and patient advised to avoid long distance driving and to overnight stocker at the first sign of drowsiness. Patient agreed to plan. * Schedule polysomnography +- manual CPAP titration study and return in 1-2 weeks after the study to discuss results. * Avoid long distance driving or driving when feeling sleepy. * Avoid alcohol, sedative and muscle relaxant around bedtime. * Attempt to lose weight. * Review instructions provided by trained office staff on how to prepare for the sleep study. * Return for follow-up after sleep study completed. Counseling Topics: Weight loss health impact Visit Type: In Office Time Spent with Patient (minutes): 44 Provider Statement: I spent 100% of the Face to Face Visit with the patient with greater than 50% spent counseling the patient and coordination of care.
[2021-10-08 13:09] VITALS: BP 138/76
== END 2021-10-08 11:46 | disposition home or self-care (01) ==
LOC: SC 11:45
PROVIDERS: ATTEND Nurse Practitioner Family
DX: G47.10 Hypersomnia, unspecified (principal); R53.83 Other fatigue; R51.9 Headache, unspecified; G47.8 Other sleep disorders; F32.A Depression, unspecified; E66.9 Obesity, unspecified; Z68.30 Body mass index [BMI] 30.0-30.9, adult; Z87.891 Personal history of nicotine dependence
CPT/HCPCS: 99203; G0463; 99212

== ENCOUNTER 2021-10-28 09:48 | Outpatient (CLI) | payer MEDICARE, MEDICAID | END 2021-10-28 09:49 | disposition home or self-care (01) | LOC: SC 09:48 | PROVIDERS: ATTEND Nurse Practitioner Family | DX: G47.10 Hypersomnia, unspecified (principal); G47.8 Other sleep disorders; R51.9 Headache, unspecified; F32.A Depression, unspecified; R53.83 Other fatigue | CPT/HCPCS: G0399 ×2; 95806 ==

== ENCOUNTER 2021-11-14 09:25 | Outpatient (CLI) | payer MEDICARE, MEDICAID ==
[2021-11-14 09:49] VITALS: BP 81/59
--- NOTE | 2021-11-14 09:49 | SLEEP CARE CONSULTATION ---
Information from patient questionnaire entered by Mani Robert MA. I have reviewed and concur with the information entered by Mani Robert MA. This document represents the service I personally performed and the decisions made by Lillian ashley Caren J, ARNP. History of Present Illness Service Date and Time: 11/14/2021 0925 Initial [place] Sleepiness Scale score: 1 (2021) Current [place] Sleepiness Scale score: 0 (11/2021) Additional HPI information: PAULETTE MUHAMMAD returns for follow up and results of the recently performed home sleep study. The patient was informed of the following findings: No significant sleep disordered breathing with an average AHI of 2.0 and kirsty oxygen saturation of 90%. I explained the pathophysiology behind obstructive sleep apnea. Patient does not have sleep apnea and was advised how weight gain could increase the risk of developing sleep apnea in the future. I strongly encouraged the patient to lose weight. Patient has mild snoring. Snoring can be reduced by weight loss. Weight loss is best achieved with diet consult. Patient instructed to contact PCP for referral. Snoring can also be treated with an oral appliance from a dentist. Advised to check insurance coverage. In addition, an ENT evaluation can be do to see if other treatment is indicated. Patient does not drink alcohol. Patient was cautioned about risks of drowsy driving until sleepiness symptoms resolve. Patient denies drowsy driving. Sleep Study - Results Type of Sleep Study: Home sleep study (F/U HOME STUDY, 10/28/2021 [facility],) Prior sleep studies: No Polysomnography/Home Sleep Study results: Physician Impression: The quality of the study is good. The length of the study is adequate (> 240 minutes). Please also see the tabulated and graphic data. 1. No significant sleep disordered breathing, with an AHI of 2.0/hr and kirsty SaO2 of 90%. During the study, the patient had 2 apneas (2 obstructive, 0 central, 0 mixed) and 9 hypopneas. The longest episode lasted 104.0 seconds. The few respiratory events independently of sleep stage and body position (supine AHI was 1.8 and non-supine, 2.34). Allergies and Home Medications Home medication list reviewed: Yes (Quercitan) Review of Systems Review of systems same as previous: No (PINCHED NERVE IN ELBOW, seeing physcial therapy ) Physical Exam Vital signs obtained and entered by: Garrison ROBERT CMA ANDIE Blood Pressure: 81/59 (RESP 16, PULSE 81, RIGHT,) Heart Rate: 86 O2 Saturation: 96 Height: 4 ft 10.75 in Weight: 150 lb (WITH CLOTHES AND BOOTS) Body Mass Index: 30.5 BMI Classification: Obese Impression and Plan 1. Snoring but no significant sleep disordered breathing. Patient advised that often weight loss will reduce snoring as well as apnea risk. An oral appliance can also be used for snoring. This would require a dental consultation. Patient cautioned not to use other online appliances as can cause bite issues. A list of accredited dentists in [facility] and one local dentist who makes oral appliances is available in office. Patient is advised to check if insurance will cover. An ENT consult can also be helpful to determine if any other treatment is an option. 2. Insomnia, unspecified. Insomnia is generally caused by an irregular sleep schedule, spending too much time in bed, napping, caffiene, electronics, lack of a relaxing bedtime ritual and clock watching. Other factors can include anxiety/depression, pain, medications, and obstructive sleep apnea. First I counseled the patient on the importance of a regular sleep schedule, starting with the wake time. I explained the homestatic sleep drive and how maintaining a regular wake time will allow the patient to be tired enough to sleep 15-16 hours later. By waking at the same time, the patient will also feel more alert. Most caffeine is to be stopped after lunch as it has a 6 hour half life and reduce sleep latency and efficiency. In addition, it is important to have a relaxing ritual about 30-60 minutes before bedtime to allow the mind/body transition from an active day to sleep. A warm bath or shower is another way to assist transition to sleep. In addition, it is important to have a sleep environment conducive to sleep such as a comfortable bed, comfortable temperature and quiet. If unable to go to sleep in an estimated 20 minutes of more, it is advised to leave the bedroom and engage in a quiet activity until sleepy enough to return to bed. If unable to sleep due to things on the mind, it is recommended to write out the concerns or list to do as a release then return to a quiet activity until sleepy enough to return to bed. This is to be repeated as often as necessary to associate the bed with sleep and not frustration to get to sleep. [facility] How to Sleep Better and Understanding Insomnia pamphlet given and reviewed. * Attempt to lose weight * The patient is cautioned about driving until sleepiness is completely resolved. * Return as needed for follow up. Counseling Topics: Weight loss health impact Visit Type: In Office Time Spent with Patient (minutes): 20 Provider Statement: I spent 100% of the Face to Face Visit with the patient with greater than 50% spent counseling the patient and coordination of care.
== END 2021-11-14 09:26 | disposition home or self-care (01) ==
LOC: SC 09:25
PROVIDERS: ATTEND Nurse Practitioner Family
DX: R06.83 Snoring (principal); G47.00 Insomnia, unspecified; E66.9 Obesity, unspecified; Z68.30 Body mass index [BMI] 30.0-30.9, adult
CPT/HCPCS: 99213; G0463; 99212

== ENCOUNTER 2021-12-26 11:42 | Outpatient (CLI) | payer MEDICARE, MEDICAID ==
[2021-12-26 15:45] LABS: CALCIUM 9.6 mg/dL (8.5-10.3)
[2021-12-26 16:41] LABS: THYROID STIMULATING HORMONE 0.56 uIU/mL (0.34-5.60)
== END 2021-12-26 11:43 | disposition home or self-care (01) ==
LOC: LAB.S 11:42
PROVIDERS: ATTEND Registered Nurse
DX: R94.4 Abnormal results of kidney function studies (principal); E03.9 Hypothyroidism, unspecified
CPT/HCPCS: 36415; 80048; 84443

== ENCOUNTER 2022-04-06 10:50 | Outpatient (CLI) | payer MEDICARE, MEDICAID ==
--- NOTE | 2022-04-06 14:26 | DEXA Report ---
PROCEDURE: Dexa Spine and/or Hip INDICATIONS: POST MENOPAUSAL TECHNIQUE: Dual energy x-ray absorptiometry (DXA) was performed on a Typekit System. Regions measur ed are the AP Spine, femoral neck, and if needed forearm. COMPARISON: DEXA 07/07/2018 FINDINGS: Lumbar Spine: Bone Mineral Density 1.282 g/cm/cm,T score 0.9, unchanged Left Hip: Bone Mineral Density 0.933 g/cm/cm,T score -0.6, compared to -0.9 Left Femoral Neck: Bone Mineral Density 0.855 g/cm/cm, T score -1.3, compared to -1.2 (T score greater or equal to -1.0: NORMAL) (T score from -1.1 to -2.4: OSTEOPENIA) (T score less than or equal to -2.5 to: OSTEOPOROSIS) Impression: Minimal osteopenia within the left femoral neck, slightly progressive. Improved appearance of bone mi neral density within the left hip. Patients with diagnosis of osteoporosis or osteopenia should have regular bone mineral density assess ment. For those eligible for Medicare, routine testing is allowed once every 2 years. Testing frequ ency can be increased for patients who have rapidly progressing disease or for those who are receivin g medical therapy to restore bone mass. Reviewed by: Scarlet Blanco MD on 04/06/2022 2:25 PM PDT Approved by: Scarlet Blanco MD on 04/06/2022 2:25 PM PDT Station ID: [id number]
== END 2022-04-06 10:51 | disposition home or self-care (01) ==
LOC: DI 10:50
PROVIDERS: ATTEND Registered Nurse
DX: M85.88 Other specified disorders of bone density and structure, other site (principal); Z78.0 Asymptomatic menopausal state

== ENCOUNTER 2022-04-06 10:50 | Outpatient (CLI) | payer MEDICARE, MEDICAID ==
--- NOTE | 2022-04-07 11:30 | Mammography Report ---
BILATERAL DIGITAL SCREENING MAMMOGRAM 3D/2D: 04/06/2022 CLINICAL: Routine screening. Comparison is made to exams dated: 05/01/2020 mammogram, 09/30/2015 mammogram, and 01/27/2018 mammogra m - [facility]. There are scattered areas of fibroglandular density in both breasts (category b / 25%-50% glandular t issue). There is a benign area of fat necrosis in the left breast. There also are benign post operative find ings in both breasts. No significant masses, calcifications, or other findings are seen in either breast. There has been no significant interval change. IMPRESSION: BENIGN There is no mammographic evidence of malignancy. A 1 year screening mammogram is recommended. Based on the Tyrer Cuzick model (a risk assessment model) the patients lifetime risk is 5.9% and her 10 year risk is 3.4%. According to the ACR, ACS, and NCCN guidelines, an annual breast MRI exam [place] with mammogram is recommended if the patients lifetime risk is 20% or greater. This exam was interpreted at Station ID: [id number]. NOTE: For mammograms, a report in lay terms will be sent to the patient. Approximately 15% of breast malignancies will not be visualized mammographically. In the management of a palpable breast mass, a negative mammogram must not discourage biopsy of a clinically suspicious lesion. Electronically Signed By: Hudson Soni M.D., jr/gary:04/06/2022 15:12:57 ACR BI-RADS Category 2: Benign Finding(s) 3342F PARENCHYMAL PATTERN: (A) - The breast(s) demonstrate(s) scattered fibroglandular densities. BI-RADS CATEGORY: (2) - 2 RECOMMENDATION: (ANNUAL) - Recommend routine annual screening mammography. [id number] 1 year screening LATERALITY: (B)
== END 2022-04-06 10:51 | disposition home or self-care (01) ==
LOC: DI 10:50
PROVIDERS: ATTEND Registered Nurse
DX: Z12.31 Encounter for screening mammogram for malignant neoplasm of breast (principal)

== ENCOUNTER 2022-05-20 16:45 | Outpatient (CLI) | payer MEDICARE, MEDICAID ==
--- NOTE | 2022-05-20 17:07 | XRAY Report ---
PROCEDURE: Chest 2 View X-Ray INDICATIONS: COUGH TECHNIQUE: PA and lateral chest. COMPARISON: None. FINDINGS: Lung parenchyma is clear. Heart and mediastinal contours appear within normal limits. Pulmonary vascu larity is normal. No pleural effusion or acute osseous abnormality seen. IMPRESSION: No evidence for active disease in the chest. Reviewed by: Gustavo Rodriguez MD on 05/20/2022 5:05 PM [facility] Approved by: Gustavo Rodriguez MD on 05/20/2022 5:05 PM [facility] Station ID: [id number]
== END 2022-05-20 16:46 | disposition home or self-care (01) ==
LOC: DI.S 16:45
PROVIDERS: ATTEND Nurse Practitioner
DX: R05.9 Cough, unspecified (principal)

== ENCOUNTER 2023-01-01 07:53 | Outpatient (CLI) | payer MEDICARE, MEDICAID ==
[2023-01-01 14:46] LABS: BASOPHILS # (AUTO) 0.1 10^3/uL (0.0-0.1); BASOPHILS % (AUTO) 1.1 %; EOSINOPHILS # (AUTO) 0.3 10^3/uL (0.0-0.7); EOSINOPHILS % (AUTO) 4.6 %; HGB - HEMOGLOBIN 14.3 g/dL (12.0-16.0); LYMPHOCYTES # (AUTO) 2.7 10^3/uL (1.5-3.5); MEAN CORPUSCULAR HEMOGLOBIN 27.1 pg (27.0-31.0); MEAN CORPUSCULAR HGB CONC 31.8 g/dL (32.0-36.0); MEAN CORPUSCULAR VOLUME 85.2 fL (81.0-99.0); MEAN PLATELET VOLUME 10.8 fL (7.9-10.8); MONOCYTES # (AUTO) 0.5 10^3/uL (0.0-1.0); MONOCYTES % (AUTO) 7.2 %; NEUTROPHILS # (AUTO) 2.7 10^3/uL (1.5-6.6); NEUTROPHILS % (AUTO) 43.9 %; PLT - PLATELET COUNT 301 10^3/uL (130-450); RED BLOOD COUNT 5.28 10^6/uL (4.20-5.40); RED CELL DISTRIBUTION WIDTH 13.3 % (12.0-15.0); WHITE BLOOD COUNT 6.3 x10^3/uL (4.8-10.8)
[2023-01-01 15:12] LABS: T4 (THYROXINE) 8.26 ug/dL (6.09-12.23)
[2023-01-01 15:16] LABS: THYROID STIMULATING HORMONE 1.43 uIU/mL (0.34-5.60)
[2023-01-01 15:23] LABS: ALBUMIN/GLOBULIN RATIO 1.4 (1.0-2.2); ALKALINE PHOSPHATASE 64 IU/L (42-121); ALT ALANINE AMINOTRANSFERASE 24 IU/L (10-60); AST ASPARTATE AMINOTRANSFERASE 23 IU/L (10-42); BILIRUBIN,TOTAL 0.7 mg/dL (0.2-1.0); BUN - BLOOD UREA NITROGEN 27 mg/dL (6-20); CALCIUM 9.1 mg/dL (8.5-10.3); CARBON DIOXIDE - CO2 27 mmol/L (21-32); CHLORIDE 107 mmol/L (101-111); CHOL/HDL RATIO 4.1 (<4.4); CHOLESTEROL 302 mg/dL; CREATININE 0.9 mg/dL (0.4-1.0); GFR - MDRD 62 (>89); GLUCOSE 108 mg/dL (70-100); HDL CHOLESTEROL 73 mg/dL; LDL CHOLESTEROL,CALCULATED 204 mg/dL; LDL/HDL RATIO 2.8 (<4.4); POTASSIUM 4.1 mmol/L (3.5-5.0); SODIUM 140 mmol/L (135-145); TOTAL PROTEIN 6.8 g/dL (6.7-8.2); TRIGLYCERIDES 125 mg/dL; VLDL CHOLESTEROL 25 mg/dL
== END 2023-01-01 07:54 | disposition home or self-care (01) ==
LOC: LAB.S 07:53
PROVIDERS: ATTEND Registered Nurse
DX: E03.9 Hypothyroidism, unspecified (principal); Z79.899 Other long term (current) drug therapy; Z13.220 Encounter for screening for lipoid disorders
CPT/HCPCS: 36415; 80053; 80061; 83721; 84436; 84443; 84480; 85025

== ENCOUNTER 2023-02-18 11:54 | Outpatient (CLI) | payer MEDICARE, MEDICAID ==
[2023-02-18 12:12] LABS: BASOPHILS # (AUTO) 0.1 10^3/uL (0.0-0.1); BASOPHILS % (AUTO) 0.8 %; EOSINOPHILS # (AUTO) 0.2 10^3/uL (0.0-0.7); EOSINOPHILS % (AUTO) 2.4 %; HCT - HEMATOCRIT 44.6 % (37.0-47.0); HGB - HEMOGLOBIN 14.9 g/dL (12.0-16.0); LYMPHOCYTES # (AUTO) 2.6 10^3/uL (1.5-3.5); LYMPHOCYTES % (AUTO) 34.3 %; MEAN CORPUSCULAR HEMOGLOBIN 28.2 pg (27.0-31.0); MEAN CORPUSCULAR HGB CONC 33.4 g/dL (32.0-36.0); MEAN CORPUSCULAR VOLUME 84.3 fL (81.0-99.0); MEAN PLATELET VOLUME 10.1 fL (7.9-10.8); MONOCYTES # (AUTO) 0.4 10^3/uL (0.0-1.0); MONOCYTES % (AUTO) 4.8 %; NEUTROPHILS # (AUTO) 4.4 10^3/uL (1.5-6.6); NEUTROPHILS % (AUTO) 57.4 %; PLT - PLATELET COUNT 283 10^3/uL (130-450); RED BLOOD COUNT 5.29 10^6/uL (4.20-5.40); RED CELL DISTRIBUTION WIDTH 12.7 % (12.0-15.0); WHITE BLOOD COUNT 7.6 x10^3/uL (4.8-10.8)
[2023-02-18 12:43] LABS: THYROID STIMULATING HORMONE 0.48 uIU/mL (0.34-5.60)
== END 2023-02-18 11:55 | disposition home or self-care (01) ==
LOC: LAB 11:54
PROVIDERS: ATTEND Registered Nurse
DX: E03.9 Hypothyroidism, unspecified (principal); Z79.899 Other long term (current) drug therapy; Z13.220 Encounter for screening for lipoid disorders
CPT/HCPCS: 36415; 80053; 80061; 83721; 84436; 84443; 84480; 85025

== ENCOUNTER 2023-02-22 11:55 | Outpatient (CLI) | payer MEDICARE, MEDICAID | END 2023-02-22 11:56 | disposition home or self-care (01) | LOC: LAB 11:55 | PROVIDERS: ATTEND Registered Nurse | DX: Z53.9 Procedure and treatment not carried out, unspecified reason (principal) | CPT/HCPCS: 80053; 80061; 83721 ==

== ENCOUNTER 2023-02-23 08:13 | Outpatient (CLI) | payer MEDICARE, MEDICAID ==
[2023-02-23 15:34] LABS: ALBUMIN 4.2 g/dL (3.2-5.5); ALBUMIN/GLOBULIN RATIO 1.6 (1.0-2.2); ALKALINE PHOSPHATASE 74 IU/L (42-121); ALT ALANINE AMINOTRANSFERASE 16 IU/L (10-60); AST ASPARTATE AMINOTRANSFERASE 16 IU/L (10-42); BILIRUBIN,TOTAL 0.5 mg/dL (0.2-1.0); BUN - BLOOD UREA NITROGEN 16 mg/dL (6-20); CALCIUM 9.3 mg/dL (8.5-10.3); CARBON DIOXIDE - CO2 28 mmol/L (21-32); CHLORIDE 107 mmol/L (101-111); CHOL/HDL RATIO 4.2 (<4.4); CHOLESTEROL 270 mg/dL; GFR - MDRD 55 (>89); GLUCOSE 99 mg/dL (74-104); HDL CHOLESTEROL 64 mg/dL; LDL CHOLESTEROL,CALCULATED 182 mg/dL; LDL/HDL RATIO 2.8 (<4.4); POTASSIUM 4.2 mmol/L (3.5-4.5); SODIUM 139 mmol/L (135-145); TOTAL PROTEIN 6.9 g/dL (6.4-8.9); TRIGLYCERIDES 122 mg/dL (48-352); VLDL CHOLESTEROL 24 mg/dL
== END 2023-02-23 08:14 | disposition home or self-care (01) ==
LOC: LAB.S 08:13
PROVIDERS: ATTEND Registered Nurse
DX: Z13.220 Encounter for screening for lipoid disorders (principal); Z79.899 Other long term (current) drug therapy
CPT/HCPCS: 36415; 80053; 80061; 83721

== ENCOUNTER 2023-10-15 14:07 | Outpatient (CLI) | payer MEDICARE, MEDICAID ==
[2023-10-15 15:05] LABS: THYROID STIMULATING HORMONE 1.44 uIU/mL (0.34-5.60)
== END 2023-10-15 14:08 | disposition home or self-care (01) ==
LOC: LAB 14:07
PROVIDERS: ATTEND Registered Nurse
DX: E03.9 Hypothyroidism, unspecified (principal)
CPT/HCPCS: 36415; 84443

== ENCOUNTER 2023-11-22 11:20 | Outpatient (CLI) | payer MEDICARE, MEDICAID ==
[2023-11-22] MEDS: ALBUTEROL 1 PUFF INH STA (14:42)
== END 2023-11-22 11:21 | disposition home or self-care (01) ==
LOC: RT 11:20
PROVIDERS: ATTEND Registered Nurse
DX: R06.00 Dyspnea, unspecified (principal)
CPT/HCPCS: 94060; 94729

== ENCOUNTER 2024-01-03 11:17 | Outpatient (CLI) | payer MEDICARE, MEDICAID ==
--- NOTE | 2024-01-03 11:58 | CT Report ---
PROCEDURE: Head WO INDICATIONS: HEADACHE TECHNIQUE: Noncontrast 4.5 mm thick angled axial sections acquired from the foramen magnum to the vertex. For r adiation dose reduction, the following was used: automated exposure control, adjustment of mA and/or kV according to patient size. COMPARISON: CT head 04/18/2019. FINDINGS: Image quality: Excellent. CSF spaces: Basal cisterns are patent. No extra-axial fluid collections. Ventricles are normal in size and shape. Brain: No midline shift. No intracranial masses or hemorrhage. Alexandra-white matter interface is norm al. Skull and face: Subtle lucency in the right parietal intramedullary space is stable compared to prio r. Calvarium and visualized facial bones are intact, without suspicious lesions. Sinuses: Visualized sinuses and mastoids are clear. IMPRESSION: 1.No cause for patient's symptoms is identified. No acute intracranial pathology. 2.Stable subtle lucency in the right parietal intramedullary space, given long-term stability this is favored to be benign in etiology. Reviewed by: Angel Chandler MD on 01/03/2024 11:56 AM PDT Approved by: Angel Chandler MD on 01/03/2024 11:56 AM PDT Station ID: [id number]
== END 2024-01-03 11:18 | disposition home or self-care (01) ==
LOC: DI 11:17
PROVIDERS: ATTEND Registered Nurse
DX: R51.9 Headache, unspecified (principal)

== ENCOUNTER 2024-01-18 08:57 | Outpatient (CLI) | payer MEDICARE, MEDICAID ==
--- NOTE | 2024-01-19 08:48 | Mammography Report ---
BILATERAL DIGITAL SCREENING MAMMOGRAM 3D/2D: 01/18/2024 CLINICAL: Routine screening. Comparison is made to exams dated: 04/06/2022 mammogram and 05/01/2020 mammogram - [facility]. There are scattered areas of fibroglandular density in both breasts (category b / 25%-50% glandular t issue). There is a benign area of fat necrosis in the left breast. There also are benign post operative find ings in both breasts. No significant masses, calcifications, or other findings are seen in either breast. There has been no significant interval change. IMPRESSION: BENIGN There is no mammographic evidence of malignancy. A 1 year screening mammogram is recommended. Based on the Tyrer Cuzick model (a risk assessment model) the patient's lifetime risk is 5.2% and her 10 year risk is 3.6%. According to the ACR, ACS, and NCCN guidelines, an annual breast MRI exam [place] with mammogram is recommended if the patient's lifetime risk is 20% or greater. This exam was interpreted at Station ID: [id number]. NOTE: For mammograms, a report in lay terms will be sent to the patient. Approximately 15% of breast malignancies will not be visualized mammographically. In the management of a palpable breast mass, a negative mammogram must not discourage biopsy of a clinically suspicious lesion. Electronically Signed By: Neo blake/gary:01/18/2024 13:36:15 letter sent: No_Letter ACR BI-RADS Category 2: Benign Finding(s) 3342F PARENCHYMAL PATTERN: (A) - The breast(s) demonstrate(s) scattered fibroglandular densities. BI-RADS CATEGORY: (2) - 2 RECOMMENDATION: (ANNUAL) - Recommend routine annual screening mammography. [id number] 1 year screening LATERALITY: (B)
== END 2024-01-18 08:58 | disposition home or self-care (01) ==
LOC: DI.S 08:57
DX: Z12.31 Encounter for screening mammogram for malignant neoplasm of breast (principal); R92.323 Mammographic fibroglandular density, bilateral breasts

== ENCOUNTER 2024-03-07 11:14 | Outpatient (CLI) | payer MEDICARE, MEDICAID | END 2024-03-07 11:15 | disposition home or self-care (01) | LOC: LAB.R 11:14 | PROVIDERS: ATTEND Nurse Practitioner | DX: L57.0 Actinic keratosis (principal) | CPT/HCPCS: 87070; 87205 ==

== ENCOUNTER 2024-03-17 08:00 | Outpatient (CLI) | payer MEDICARE, MEDICAID | END 2024-03-17 23:59 | disposition home or self-care (01) | LOC: LAB 08:00 | PROVIDERS: ATTEND Emergency Medicine | DX: R30.0 Dysuria (principal) | CPT/HCPCS: 87086 ==

== ENCOUNTER 2024-03-19 11:18 | Emergency (ER) | payer MEDICARE, MEDICAID ==
--- NOTE | 2024-03-19 13:45 | ED Physician Documentation ---
History of Present Illness - Stated complaint Stated Complaint: PELVIC PX,,FATIGUE - Chief complaint Chief Complaint: General - History obtained from History obtained from: Patient - Additonal information Additional information: Patient is a 73-year-old female presenting to the emergency department with pelvic pain and difficulty urinating. Patient notes symptoms have been going on for about a week now but she feels they have been intermittent over the last year. She went to urgent care on Wednesday and had a pelvic exam performed by provider there and was informed she may have a vaginal prolapse. She was given ultrasound to be performed but it was not scheduled on Wednesday so she became concerned over the weekend. She notes due to pain in her pelvis she feels she have to to remain in bed due to cramping when she gets up and feelings of pressure in her pelvis. She notes she occasionally will have difficulty urinating. She follows with physical therapy and he does adjustments on her. S he notes she has not followed physical therapy for her pelvic pain symptoms. She denies any fevers or chills no back pain no nausea or vomiting associated with her symptoms.Patient is not sexually active. She has no concerns for STDs at this time. PD PAST MEDICAL HISTORY - Past Medical History Past Medical History: Yes Cardiovascular: None Respiratory: Asthma Neuro: Headaches Endocrine/Autoimmune: HyPOthyroidism, Other GI: None TENTER FRAME OPERATOR: None, Other : None HEENT: None Psych: Post traumatic stress disorder, Other Musculoskeletal: Fibromyalgia Derm: None - Past Surgical History Past Surgical History: Yes /TENTER FRAME OPERATOR: Breast reduction, Other HEENT: Tonsil/Adenoidectomy - Present Medications Home Medications: Ambulatory Orders Medication Instructions Recorded Confirmed Cholecalciferol (Vitamin D3) 50 mcg PO DAILY 03/19/24 03/19/24 [Vitamin D3] Cyclobenzaprine [Flexeril] 10 mg PO BID #20 tablet 03/19/24 Ibuprofen 400 mg PO Q6HR PRN 03/19/24 03/19/24 Levalbuterol Tartrate 2 puffs IH Q6HR PRN 03/19/24 03/19/24 [Levalbuterol Tartrate Hfa] Levothyroxine [Synthroid] 100 mcg PO QDAC 03/19/24 03/19/24 - Allergies Allergies/Adverse Reactions: Allergies Allergy/AdvReac Type Severity Reaction Status Date / Time acetaminophen [From Vicodin] Allergy Unknown Verified 03/19/24 11:36 diazepam [From Valium] Allergy Unknown Verified 03/19/24 11:36 hydrocodone [From Vicodin] Allergy Unknown Verified 03/19/24 11:36 latex Allergy Unknown Verified 03/19/24 11:36 procaine [From Novocain] Allergy Unknown Verified 03/19/24 11:36 - Social History Does the pt smoke?: No Smoking Status: Never smoker Does the pt drink ETOH?: No Does the pt have substance abuse?: No - Immunizations Immunizations are current?: Yes - POLST Patient has POLST: No PD ED PE NORMAL - Vitals Vital signs reviewed: Yes - General General: Alert and oriented X 3 - HEENT HEENT: Atraumatic - Neck Neck: Supple, no meningeal sign - Cardiac Cardiac: RRR, No murmur, No gallop, No rub - Respiratory Respiratory: No respiratory distress, Clear bilaterally - Abdomen Abdomen: Normal bowel sounds, Other (Tenderness on examination to lower pelvis without rebound or guarding. No acute abdomen on palpation.) - Female Female : Other (Female exam shows no signs of prolapse. No significant discharge or bleeding appreciated.) - Back Back: No CVA TTP - Derm Derm: Normal color, Warm and dry - Extremities Extremities: No deformity Results - Vitals Vitals: Vital Signs - 24 hr 03/19/24 03/19/24 03/19/24 11:36 14:03 14:22 Temperature 36.5 C Heart Rate 69 82 70 Respiratory 18 20 16 Rate Blood Pressure 161/96 H 159/100 H 175/100 H O2 Saturation 99 99 98 03/19/24 16:16 Temperature Heart Rate 58 L Respiratory 16 Rate Blood Pressure 142/83 H O2 Saturation 95 Oxygen O2 Source Room air - Labs Labs: Laboratory Tests 03/19/24 03/19/24 03/19/24 12:26 13:45 13:45 WBC 10.3 RBC 4.94 Hgb 13.6 Hct 41.7 MCV 84.4 MCH 27.5 MCHC 32.6 RDW 12.2 Plt Count 448 MPV 10.1 Neut # (Auto) 7.0 H Lymph # (Auto) 2.5 [place] # (Auto) 0.6 Eos # (Auto) 0.2 Baso # (Auto) 0.1 Absolute Nucleated RBC 0.00 Nucleated RBC % 0.0 Sodium 138 Potassium 3.5 Chloride 102 Carbon Dioxide 28 Anion Gap 8.0 BUN 17 Creatinine 1.0 Estimated GFR (MDRD) 55 L Glucose 135 H Calcium 9.3 Total Bilirubin 0.4 AST 12 ALT 11 Alkaline Phosphatase 76 Total Protein 6.9 Albumin 4.0 Globulin 2.9 Albumin/Globulin Ratio 1.4 Lipase 18 Urine Color YELLOW Urine Clarity CLEAR Urine pH 7.5 Ur Specific [place] 1.010 Urine Protein NEGATIVE Urine Glucose (UA) NEGATIVE Urine Ketones NEGATIVE Urine Occult Blood NEGATIVE Urine Nitrite NEGATIVE Urine Bilirubin NEGATIVE Urine Urobilinogen 0.2 (NORMAL) Ur Leukocyte Esterase NEGATIVE Ur Microscopic Review NOT INDICATED Urine Culture Comments NOT INDICATED PD Medical Decision Making - ED course Complexity details: reviewed old records, reviewed results, re-evaluated patient ED course: Patient is a 73-year-old generally healthy female presenting to the emergency department with lower pelvic pain cramping lower back pain. Patient notes symptoms have been going on since the last week. However she notes symptoms have actually been intermittent for the last year she notes symptoms have slowly worsened this week however. Patient went to urgent care on had concerns for on physical exam possible prolapse. Patient was Ordered an ultrasound but was unable to get it obtained as it was not processed prior to Wednesday. Patient notes persistent pain since then. She notes she has been laying at home taking ibuprofen without relief. She denies any discharge no concerns for STDs. No fevers chills. Patient notes occasional difficulty urinating but no changes in color or dysuria. Vitals are stable on arrival physical exam on pelvic exam shows no signs of prolapse no palpable mass no CMT or discharge on exam. Labs obtained here show no significant leukocytosis concerning for infection. UA shows no signs of UTI and GFR stable at 55 which is similar to previous labs. Given patient's symptoms of pelvic ultrasound with transvaginal Doppler obtained here in emergency department. Due to patient having significant pain with transvaginal unable to fully evaluate ovaries however no acute findings on evaluation of uterus. Discussed with patient reassuring workup here in emergency department we will try muscle relaxer for her lower back pain and cramping. Patient agreeable to trying this she was given strict return return precautions. Patient denied taking any Toradol or other pain medications here in emergency department. Will have patient follow- up with MEDICAL BILL PROCESSOR in outpatient setting considering concerns for possible grade 1 prolapse not versus Departure - Departure Disposition: Home, Self Care Clinical Impression: Pelvic pain in female, Low back pain Condition: Good Instructions: Flexeril Follow-Up: Cierra Arredondo MD [Physician No Access] - Comments: You were seen here in the emergency department for your pelvic pain low back pain vaginal pain. Your workup here in the emergency department was reassuring showing. No signs of UTI no signs of pelvic findings. Your workup here showed no new acute findings but given your pain improves with ibuprofen symptoms could be secondary to chronic pelvic pain versus low back pain radiating to lower pelvis. You should follow-up with your PCP and given you follow-up with MEDICAL BILL PROCESSOR in outpatient setting. Return with any new or worsening symptoms.I have given you a muscle relaxer to see if this will help with your symptoms watch for any drowsiness and do not drive or work on this medication. Please take it only as prescribed. Forms: PCP List
[2024-03-19 13:50] LABS: BILIRUBIN,URINE NEGATIVE (NEGATIVE); GLUCOSE, URINE (UA) NEGATIVE (NEGATIVE); KETONES,URINE (UA) NEGATIVE (NEGATIVE); LEUKOCYTE ESTERASE, URINE NEGATIVE (NEGATIVE); NITRITE,URINE NEGATIVE (NEGATIVE); OCCULT BLOOD,URINE NEGATIVE (NEGATIVE); PH,URINE 7.5 PH (5.0-7.5); PROTEIN,URINE NEGATIVE (NEGATIVE); UROBILINOGEN,URINE 0.2 (NORMAL) E.U./dL (NORMAL)
[2024-03-19 13:52] LABS: CLARITY,URINE CLEAR (CLEAR)
[2024-03-19 13:53] LABS: BASOPHILS # (AUTO) 0.1 10^3/uL (0.0-0.1); BASOPHILS % (AUTO) 0.7 %; EOSINOPHILS # (AUTO) 0.2 10^3/uL (0.0-0.7); EOSINOPHILS % (AUTO) 1.5 %; HCT - HEMATOCRIT 41.7 % (37.0-47.0); HGB - HEMOGLOBIN 13.6 g/dL (12.0-16.0); LYMPHOCYTES # (AUTO) 2.5 10^3/uL (1.5-3.5); LYMPHOCYTES % (AUTO) 23.8 %; MEAN CORPUSCULAR HEMOGLOBIN 27.5 pg (27.0-31.0); MEAN CORPUSCULAR HGB CONC 32.6 g/dL (32.0-36.0); MEAN CORPUSCULAR VOLUME 84.4 fL (81.0-99.0); MEAN PLATELET VOLUME 10.1 fL (7.9-10.8); MONOCYTES # (AUTO) 0.6 10^3/uL (0.0-1.0); MONOCYTES % (AUTO) 6.2 %; NEUTROPHILS % (AUTO) 67.4 %; PLT - PLATELET COUNT 448 10^3/uL (130-450); RED BLOOD COUNT 4.94 10^6/uL (4.20-5.40); RED CELL DISTRIBUTION WIDTH 12.2 % (12.0-15.0); WHITE BLOOD COUNT 10.3 x10^3/uL (4.8-10.8)
[2024-03-19 14:06] LABS: ALBUMIN/GLOBULIN RATIO 1.4 (1.0-2.2); BILIRUBIN,TOTAL 0.4 mg/dL (0.2-1.0); CALCIUM 9.3 mg/dL (8.5-10.3); POTASSIUM 3.5 mmol/L (3.5-4.5); TOTAL PROTEIN 6.9 g/dL (6.4-8.9)
--- NOTE | 2024-03-19 16:54 | Ultrasound Report ---
PROCEDURE: Pelvic w/Transvaginal INDICATIONS: pelvic pain TECHNIQUE: Real-time scanning was performed of the pelvic organs, with image documentation. Additional endovagi nal scanning was necessary due to incomplete visualization of the adnexal and endometrial structures by transabdominal scanning. COMPARISON: None. FINDINGS: Uterus: Uterus is anteverted and normal in size at 5.1 x 1.9 x 3 cm. The myometrium is homogeneous. The endometrium measures 4 mm in combined thickness. Ovaries: Ovaries not visualized due to overlying bowel gas. Other: No pathologic free abdominal or pelvic fluid. IMPRESSION: Ovaries not visualized due to overlying bowel gas. Uterus is unremarkable. Reviewed by: Kevin Muñiz MD on 03/19/2024 4:53 PM PDT Approved by: Kevin Muñiz MD on 03/19/2024 4:53 PM PDT Station ID: [id number]
[2024-03-19] MEDS: KETOROLAC 15 MG/ML VIAL IM STA (16:58)
[2024-03-19 17:31] VITALS: BP 117/83; O2SAT 100
== END 2024-03-19 17:36 | disposition home or self-care (01) ==
LOC: ED 11:18
DX: R10.2 Pelvic and perineal pain (principal); M54.50 Low back pain, unspecified; J45.909 Unspecified asthma, uncomplicated; E03.9 Hypothyroidism, unspecified; M79.7 Fibromyalgia
CPT/HCPCS: 36415; 80053; 81001; 81003; 83690; 85025; 87086; 99283

== ENCOUNTER 2024-04-05 08:53 | Outpatient (CLI) | payer MEDICARE, MEDICAID ==
[2024-04-05 15:36] LABS: CHOL/HDL RATIO 4.9 (<4.4); CHOLESTEROL 267 mg/dL; HDL CHOLESTEROL 54 mg/dL; LDL CHOLESTEROL,CALCULATED 180 mg/dL; LDL/HDL RATIO 3.3 (<4.4); TRIGLYCERIDES 167 mg/dL; VLDL CHOLESTEROL 33 mg/dL
[2024-04-05 15:39] LABS: THYROID STIMULATING HORMONE 0.43 uIU/mL (0.34-5.60)
== END 2024-04-05 08:54 | disposition home or self-care (01) ==
LOC: LAB.S 08:53
PROVIDERS: ATTEND Registered Nurse
DX: E03.9 Hypothyroidism, unspecified (principal); Z13.220 Encounter for screening for lipoid disorders
CPT/HCPCS: 36415; 80061; 83721; 84439; 84443; 84481